=== PATIENT | female | born 1965 | race Caucasian/White ===

== ENCOUNTER 2017-03-30 15:33 | Emergency (ER) | payer MEDICAID ==
--- NOTE | 2017-03-30 16:15 | ER Document Report ---
HPI - HPI Patient complains to provider of: Right ankle, right foot, and right elbow pain Onset: This afternoon Onset/Duration: Sudden Quality of pain: Throbbing Severity: Moderate Pain Level: 4 Context: Patient states she slipped and fell off her porch injuring her right elbow, right ankle/foot. Denies other injuries. Associated Symptoms: Leg swelling - Right ankle/foot Exacerbated by: Movement, Walking Relieved by: Denies Similar symptoms previously: No Recently seen / treated by doctor: No - ROS ROS below otherwise negative: Yes Systems Reviewed and Negative: Yes All other systems reviewed and negative - CONSTITUTIONAL Constitutional: DENIES: Fever - EENT EENT: DENIES: Nasal Drainage-Purulent - NEURO Neurology: DENIES: Dizzinesss / Vertigo - CARDIOVASCULAR Cardiovascular: DENIES: Chest pain - RESPIRATORY Respiratory: DENIES: Trouble Breathing - GASTROINTESTINAL Gastrointestinal: DENIES: Abdominal Pain - URINARY Urinary: DENIES: Dysuria - REPRODUCTIVE Reproductive: DENIES: : - MUSCULOSKELETAL Musculoskeletal: REPORTS: Extremity pain - Right ankle/foot, elbow, Swelling - DERM Skin Color: Ecchymosis Skin Problems: Rash Past Medical History - General Information source: Patient - Social History Smoking Status: Current Every Day Smoker Cigarette use (# per day): Yes Frequency of alcohol use: None Drug Abuse: None Lives with: Family Family History: Other - mental illness Patient has suicidal ideation: No Patient has homicidal ideation: No Pulmonary Medical History: Reports: Hx COPD Neurological Medical History: Reports: Hx Migraine Musculoskeltal Medical History: Reports Hx Fibromyalgia Psychiatric Medical History: Reports: Hx Attention Deficit Hyperactivity Disorder, Hx Bipolar Disorder, Hx Depression Past Surgical History: Reports: Hx Section, Hx Cholecystectomy, Hx Hysterectomy - Immunizations Hx Diphtheria, Pertussis, Tetanus Vaccination: Yes Hx Pneumococcal Vaccination: 10/25/11 Vertical Provider Document - CONSTITUTIONAL Agree With Documented VS: Yes Exam Limitations: No Limitations General Appearance: WD/WN, No Apparent Distress - INFECTION CONTROL TRAVEL OUTSIDE OF THE [place] IN LAST 30 DAYS: No - HEENT HEENT: Atraumatic, Normocephalic - RESPIRATORY Respiratory: Breath Sounds Normal, No Respiratory Distress O2 Sat by Pulse Oximetry: 96 - CARDIOVASCULAR Cardiovascular: Regular Rate, Regular Rhythm - GI/ABDOMEN Gastrointestinal: Abdomen Soft, Abdomen Non-Tender - MUSCULOSKELETAL/EXTREMETIES Musculoskeletal/Extremeties: Tender, Edema - Right foot/ankle, Eccymosis - Right lateral foot and right elbow - NEURO Level of Consciousness: Awake, Alert, Appropriate - DERM Integumentary: Warm, Dry, Rash - Patient has multiple scabbed, red lesions to arms and legs. Several with surrounding erythema and warmth. Course - Re-evaluation Re-evalutation: 03/30/17 17:13 X-rays negative and discussed with patient. - Vital Signs Vital signs: Temp Pulse Resp BP Pulse Ox 98.2 F 89 18 100/78 96 03/30/17 15:40 03/30/17 15:40 03/30/17 15:40 03/30/17 15:40 03/30/17 15:40 Discharge - Discharge Clinical Impression: Rash Fall Qualifiers: Encounter type: initial encounter Qualified Code(s): W19.XXXA - Unspecified fall, initial encounter Foot sprain Qualifiers: Encounter type: initial encounter Laterality: right Qualified Code(s): S93.601A - Unspecified sprain of right foot, initial encounter Contusion of right elbow Qualifiers: Encounter type: initial encounter Qualified Code(s): S50.01XA - Contusion of right elbow, initial encounter Condition: Good Disposition: HOME, SELF-CARE Instructions: Ice Packs ([facility]), Sprain ([facility]) Additional Instructions: No fractures were seen on x-ray today. Ice and elevate right foot and elbow [id number] ibuprofen for pain With your doctor for recheck on Wednesday. Take All antibiotics for the skin rash that you have. return As needed Prescriptions: Cephalexin [Cephalexin 500 MG Capsule] 1 cap PO QID #28 capsule
--- NOTE | 2017-03-30 16:57 | RADIOLOGY REPORT (SQ) ---
EXAM DESCRIPTION: ANKLE RIGHT COMPLETE COMPLETED DATE/TIME: 03/30/2017 4:43 pm REASON FOR STUDY: fall injury COMPARISON: None. NUMBER OF VIEWS: Three views. TECHNIQUE: AP, lateral, and oblique radiographic images acquired of the right ankle. LIMITATIONS: None. FINDINGS: MINERALIZATION: Normal. BONES: No acute fracture or dislocation. No worrisome bone lesions. JOINTS: No effusions. SOFT TISSUES: Mild soft tissue swelling is identified. OTHER: No other significant finding. IMPRESSION: Soft tissue swelling without evidence for fracture TECHNICAL DOCUMENTATION: JOB ID: [id number] [employer]- All Rights Reserved
--- NOTE | 2017-03-30 16:59 | RADIOLOGY REPORT (SQ) ---
EXAM DESCRIPTION: ELBOW RIGHT OVER 2 VIEWS COMPLETED DATE/TIME: 03/30/2017 4:43 pm REASON FOR STUDY: fall injury COMPARISON: None. NUMBER OF VIEWS: Four views. TECHNIQUE: AP, lateral, and both oblique radiographic images acquired of the right elbow. LIMITATIONS: None. FINDINGS: MINERALIZATION: Normal. BONES: No acute fracture or dislocation. No worrisome bone lesions. JOINT: No effusion. SOFT TISSUES: No soft tissue swelling. No foreign body. OTHER: No other significant finding. IMPRESSION: NEGATIVE STUDY OF THE RIGHT ELBOW. NO RADIOGRAPHIC EVIDENCE OF ACUTE INJURY. TECHNICAL DOCUMENTATION: JOB ID: [id number] [employer]- All Rights Reserved
--- NOTE | 2017-03-30 17:06 | RADIOLOGY REPORT (SQ) ---
EXAM DESCRIPTION: FOOT RIGHT COMPLETE COMPLETED DATE/TIME: 03/30/2017 4:43 pm REASON FOR STUDY: fall injury COMPARISON: None. NUMBER OF VIEWS: Three views. TECHNIQUE: AP, lateral and oblique radiographic images acquired of the right foot. LIMITATIONS: None. FINDINGS: MINERALIZATION: Normal. BONES: No acute fracture or dislocation. No worrisome bone lesions. JOINTS: No effusions. SOFT TISSUES: No soft tissue swelling. No foreign body. OTHER: No other significant finding. IMPRESSION: NEGATIVE STUDY OF THE RIGHT FOOT. NO RADIOGRAPHIC EVIDENCE OF ACUTE INJURY. TECHNICAL DOCUMENTATION: JOB ID: [id number] [employer]- All Rights Reserved
[2017-03-30] MEDS ORDERED: IBUPROFEN 600 MG TABLET PO ONE (17:12)
[2017-03-30 17:25] VITALS: BP 113/92
== END 2017-03-30 17:20 | disposition home or self-care (01) ==
LOC: ER 15:33
DX: S93.601A Unspecified sprain of right foot, initial encounter (principal); S50.01XA Contusion of right elbow, initial encounter; R21 Rash and other nonspecific skin eruption; M25.571 Pain in right ankle and joints of right foot; M79.671 Pain in right foot; M25.521 Pain in right elbow; W19.XXXA Unspecified fall, initial encounter; F17.210 Nicotine dependence, cigarettes, uncomplicated
CPT/HCPCS: 99283; 73610; 73080; 73630; J3490

== ENCOUNTER 2017-11-06 16:32 | Emergency (ER) | payer MEDICAID ==
[2017-11-06] MEDS ORDERED: CLINDAMYCIN HCL 150 MG CAPSULE PO ONE (17:46)
--- NOTE | 2017-11-06 17:51 | ER Document Report ---
HPI - HPI Patient complains to provider of: Blisters to skin Onset: Yesterday Onset/Duration: Persistent Quality of pain: Achy Pain Level: 5 Context: Patient complains of blisters to bilateral feet that developed yesterday. Patient states that the blister opened up and came off when she put her sock off. Patient denies taking any medications. Patient denies any new foods or detergents. Patient without any fever. Patient complains of redness to bilateral feet. Patient additionally has a scabbed wound to left elbow. Patient reports her tetanus immunization was 4 years ago. Associated Symptoms: Other - Skin blisters to feet Exacerbated by: Movement Relieved by: Denies Similar symptoms previously: No Recently seen / treated by doctor: No - ROS ROS below otherwise negative: Yes Systems Reviewed and Negative: Yes All other systems reviewed and negative - CONSTITUTIONAL Constitutional: DENIES: Fever, Chills - CARDIOVASCULAR Cardiovascular: DENIES: Chest pain - RESPIRATORY Respiratory: DENIES: Trouble Breathing, Coughing - REPRODUCTIVE Reproductive: DENIES: : - MUSCULOSKELETAL Musculoskeletal: REPORTS: Extremity pain - DERM Skin Color: Erythema Skin Problems: Blister Past Medical History - General Information source: Patient - Social History Smoking Status: Current Every Day Smoker Smoking Education Provided: Yes Frequency of alcohol use: None Drug Abuse: None Occupation: None Lives with: Family Family History: Reviewed & Not Pertinent, Other - mental illness Pulmonary Medical History: Reports: Hx COPD Neurological Medical History: Reports: Hx Migraine Renal/ Medical History: Denies: Hx Peritoneal Dialysis Musculoskeltal Medical History: Reports Hx Fibromyalgia Psychiatric Medical History: Reports: Hx Attention Deficit Hyperactivity Disorder, Hx Bipolar Disorder, Hx Depression Past Surgical History: Reports: Hx Section, Hx Cholecystectomy, Hx Hysterectomy - Immunizations Hx Diphtheria, Pertussis, Tetanus Vaccination: Yes Hx Pneumococcal Vaccination: 10/25/11 Vertical Provider Document - CONSTITUTIONAL Agree With Documented VS: Yes Exam Limitations: No Limitations General Appearance: Other - Drowsy, arouses easily to voice - INFECTION CONTROL TRAVEL OUTSIDE OF THE [place] IN LAST 30 DAYS: No - HEENT HEENT: Atraumatic, Normal ENT Exam, Normocephalic - NECK Neck: Normal Inspection - RESPIRATORY Respiratory: No Respiratory Distress O2 Sat by Pulse Oximetry: 99 - CARDIOVASCULAR Pulses: Normal: Radial, Dorsalis pedis - BACK Back: Normal Inspection - MUSCULOSKELETAL/EXTREMETIES Musculoskeletal/Extremeties: MAEW, FROM, No Edema - NEURO Level of Consciousness: Awake, Appropriate Motor/Sensory: No Motor Deficit - DERM Integumentary: Warm, Dry Adult Front & Back Diagram: 1 - Crusted skin lesion with surrounding erythema 2 - Open blister with surrounding erythema, blister has been deroofed and has trimmed wound edges that appear as though somebody clipped the hanging skin off 3 - 3 open skin lesions with surrounding erythema Course - Re-evaluation Re-evalutation: 11/06/17 17:46 Patient denies picking at or scratching at the skin although has obvious excoriations surrounding wound to left elbow. Open skin wounds to bilateral feet do look like they may have been blisterlike lesions although they appear to have been deroofed and the overlying skin appears to have been trimmed away although patient denies trimming the overlying blister. Patient appears to be overmedicated. Patient does arouse easily to voice and answers questions appropriately when awake. Patient is requesting something for pain or something for her anxiety. Provider explained to patient that she appears to be overmedicated at this time given the patient denies taking any medications at all. Patient advised that she can have Tylenol or Motrin to manage her pain symptoms. Patient states that she has these medications at home. Controlled substance database reviewed After review of controlled substance database, provider discussed findings with patient showing that patient has prescriptions filled recently for Klonopin as well as methadone. Patient states that she is not taking these medications but that they did get filled recently and that she just has not picked them up from her aunt's house. 11/06/17 18:31 Patient and her mother were advised that patient should not take her Klonopin together with her methadone to avoid oversedation. Patient was advised that she needs to follow-up with her primary doctor to discuss the dosages of her medications as she may need one if not both of the dosages of these medications decreased to avoid oversedation. Patient advised that it is dangerous to take these medications as they can cause potential from overdose. Patient and mother verbalized understanding. - Vital Signs Vital signs: Temp Pulse Resp BP Pulse Ox 98.9 F 78 18 113/65 99 11/06/17 16:58 11/06/17 16:58 11/06/17 16:58 11/06/17 16:58 11/06/17 16:58 Discharge - Discharge Clinical Impression: Cellulitis Qualifiers: Site of cellulitis: extremity Site of cellulitis of extremity: lower extremity Laterality: unspecified laterality Qualified Code(s): L03.119 - Cellulitis of unspecified part of limb Condition: Stable Disposition: HOME, SELF-CARE Instructions: Bactroban Ointment ([facility]), Cellulitis ([facility]), Clindamycin ([facility]), Dressing Instructions for Open Wounds ([facility]), Family Physicians / Practices Additional Instructions: Return immediately for any new or worsening symptoms Followup with your primary care provider, call tomorrow to make a followup appointment Keep wounds covered while they continue to heal, do not pick at your skin Prescriptions: Clindamycin HCl [Cleocin Hcl] 300 mg PO QID #28 capsule Mupirocin [Bactroban 2% Ointment 22 gm] 1 applic TP TID #22 gm Forms: Smoking Cessation Education Referrals: [facility] [Provider Group] - Follow up as needed
[2017-11-06 18:47] VITALS: BP 122/81
== END 2017-11-06 18:40 | disposition home or self-care (01) ==
LOC: ER 16:32
DX: L03.119 Cellulitis of unspecified part of limb (principal); S90.822A Blister (nonthermal), left foot, initial encounter; S90.821A Blister (nonthermal), right foot, initial encounter; F17.200 Nicotine dependence, unspecified, uncomplicated; X58.XXXA Exposure to other specified factors, initial encounter
CPT/HCPCS: 99282; J3490

== ENCOUNTER 2017-12-14 01:46 | Emergency (ER) | payer MEDICAID ==
--- NOTE | 2017-12-14 02:34 | ER Document Report ---
ED Syncope and Near Syncope - General Chief Complaint: Syncope Stated Complaint: SYNCOPAL EPISODE Time Seen by Provider: 12/14/17 02:20 Mode of Arrival: Medic Information source: Relative Notes: 52-year-old female presents to ED for severe left-sided headache and "syncope "for the last 3 days. Mom states the looks like she was having a seizure yesterday because she was shaking all over and yelling at mom to help her. TRAVEL OUTSIDE OF THE [place] IN LAST 30 DAYS: No - HPI Patient complains to provider of: Nearly fainting Episode witnessed (by whom): Yes - Mother Single episoded occurred: Mother states that she has been acting different and has been screaming for Symptoms prior to episode: Other - Patient has had increase in headaches she is on multiple medications to include methadone and Klonopin and Neurontin. EMS stated her blood sugar was in the 60s when they arrived to the house. Position/Activity at time of episode: Sitting Quality of pain: Other - Headache Severity: Moderate Context: Low blood sugar Seizure activity observed: Focal Current symptoms: Headache Similar symptoms previously: Yes Recently seen / treated by doctor: Yes - Related Data Allergies/Adverse Reactions: acetaminophen [From Darvocet-N 100] Allergy (Unknown, Verified 03/30/17 16:29) Penicillins Allergy (Unknown, Verified 03/30/17 16:29) propoxyphene napsylate [From Darvocet-N 100] Allergy (Unknown, Verified 16:29) tramadol HCl [From Ultram] Allergy (Unknown, Verified 03/30/17 16:29) Past Medical History - General Information source: Relative - Mother - Social History Smoking Status: Current Every Day Smoker Cigarette use (# per day): Yes Chew tobacco use (# tins/day): No Smoking Education Provided: No Frequency of alcohol use: None Drug Abuse: None Lives with: Family Family History: Reviewed & Not Pertinent, Other - mental illness - Past Medical History Cardiac Medical History: Reports: None Pulmonary Medical History: Reports: Hx COPD EENT Medical History: Reports: None Neurological Medical History: Reports: Hx Migraine Endocrine Medical History: Reports: None Renal/ Medical History: Reports: None Malignancy Medical History: Reports: None GI Medical History: Reports: None Musculoskeltal Medical History: Reports Hx Fibromyalgia Skin Medical History: Reports None Psychiatric Medical History: Reports: Hx Attention Deficit Hyperactivity Disorder, Hx Bipolar Disorder, Hx Depression Traumatic Medical History: Reports: None Infectious Medical History: Reports: None Past Surgical History: Reports: Hx Section - 2, Hx Cholecystectomy - Immunizations Hx Diphtheria, Pertussis, Tetanus Vaccination: Yes Hx Pneumococcal Vaccination: 10/25/11 Review of Systems - Review of Systems Notes: Constitutional: [PRESENT: as per HPI. ABSENT: chills, fever(s),headache(s), weight gain, weight loss] low blood sugar for EMS Eyes: [ABSENT: visual disturbances] Ears: [ABSENT: hearing changes] Cardiovascular: [ABSENT: chest pain, dyspnea on exertion, edema, orthropnea, palpitations] Respiratory: [ABSENT: cough, hemoptysis] Gastrointestinal: [ABSENT: abdominal pain, constipation, diarrhea, hematemesis, hematochezia, nausea, vomiting] Genitourinary: [ABSENT: dysuria, hematuria] Musculoskeletal: [ABSENT: joint swelling] Integumentary: [ABSENT: rash, wounds] Neurological: [ABSENT: abnormal gait, abnormal speech, confusion, dizziness, focal weakness, positive for syncopal episode per family Psychiatric: Mental health history patient on methadone and Neurontin and Klonopin Endocrine: [ABSENT: cold intolerance, heat intolerance, menstrual abnormalities , polydipsia, polyuria] Hematologic/Lymphatic: [ABSENT: easy bleeding, easy bruising, lymphadenopathy] Physical Exam - Vital signs Vitals: Pulse Ox 96 12/14/17 01:57 - Notes Notes: PHYSICAL EXAMINATION: GENERAL: 52-year-old female well-appearing, well-nourished and in no acute distress. HEAD: Atraumatic, normocephalic. EYES: Pupils equal round and reactive to light, extraocular movements intact, conjunctiva are normal. ENT: Nares patent, oropharynx clear without exudates. Moist mucous membranes. NECK: Normal range of motion, supple without lymphadenopathy LUNGS: Breath sounds clear to auscultation bilaterally and equal. No wheezes rales or rhonchi. HEART: Regular rate and rhythm without murmurs ABDOMEN: Soft, nontender, nondistended abdomen. No guarding, no rebound. No masses appreciated. Female : deferred Musculoskeletal: Normal range of motion, no pitting or edema. No cyanosis. NEUROLOGICAL: Patient is very sleepy on multiple psych drugs as well as pain medications to include methadone, Klonopin, and Neurontin. PSYCH: Patient very sleepy at this time SKIN: Warm, Dry, normal turgor, no rashes or lesions noted. Course - Re-evaluation Re-evalutation: 12/14/17 06:08 Patient awake able to walk to the bathroom with a steady gait with the nurse and the PCT. Accu-Chek is 72. She is answering questions appropriately. Results of labs and x-ray and CT discussed with patient and mother and written reports given to them to follow-up with the primary doctor today. Patient was instructed to follow-up with her doctor today by telephone to schedule a follow- up appointment. Will discharge patient home. - Vital Signs Vital signs: Temp Pulse Resp BP Pulse Ox 14 119/78 96 12/14/17 05:01 12/14/17 05:00 12/14/17 05:01 - Laboratory Result Diagrams: 12/14/17 02:40 12/14/17 02:40 Laboratory results interpreted by me: 12/14/17 12/14/17 12/14/17 02:40 02:40 04:48 RBC 3.57 L Hgb 10.7 L Hct 31.6 L RDW 14.8 H Sodium 145.9 H Potassium 3.4 L Glucose 72 L Ur Leukocyte Esterase TRACE H - Diagnostic Test Radiology reviewed: Image reviewed, Reports reviewed Discharge - Discharge Clinical Impression: Syncope Qualifiers: Syncope type: unspecified Qualified Code(s): R55 - Syncope and collapse Condition: Stable Disposition: HOME, SELF-CARE Additional Instructions: NEAR SYNCOPAL EPISODE: Syncope or near syncope (fainting or near-fainting) can occur from many different health problems. Or it can be a simple fainting spell requiring no treatment. It is safe for you to go home, but further evaluation will likely be necessary. Your work-up may include tests for internal bleeding, heart disease, medication problems, or near-strokes. Tests are not always required, however, depending on the nature of your problem. The warning signs of an impending faint include: dizziness, lightheadedness , nausea, hot flashes, tingling, and weakness. If this happens, lay down and put your feet up, then wait until all of these symptoms have passed before standing up again. If these episodes become recurrent, or if you develop chest pain, heart palpitations, mental confusion, blurred vision, or headache, then you should call the physician, or go to the emergency room. ALTERED MENTAL STATUS: An altered mental status is a change in the normal functioning of the brain. This alteration of function can range from minor decreased brain function with some forgetfulness and confusion to complete loss of consciousness and coma. There are many possible causes of an altered mental status and include brain injuries such as trauma or strokes, problems with oxygen supply to the brain, fever and infections of the brain and/or elsewhere in the body, metabolic abnormalities such as low or high blood sugar, overdoses or excessive medication ingestion, and mental and psychiatric illnesses. Sometimes the altered mental status resolves and a definite cause is not determined. If a cause for your altered mental status was found, it has likely been corrected. Your evaluation has not shown any condition that requires that you be admitted to the hospital. It is believed that you are safe to lelave and return to your home. If you have a return of your symptoms, you should return for re-evaluation. NORMAL EXAM AND WORKUP: At this time, your examination and workup show no significant abnormality. No significant abnormal physical findings were noted. All laboratory, EKG, and imaging (x-ray, CT scans, ultrasound) studies that were ordered show no significant abnormality. Although your examination and all studies that were ordered showed no significant abnormal finding, there are no examinations and no studies that are 100% accurate. There is always the possibility that some abnormality could exist and not be detected with physical examination or within the limits and capabilities of laboratory and other studies. You should return or follow up as you were instructed on your visit today for further evaluation if your symptoms do not resolve. FOLLOW-UP CARE: If you have been referred to a physician for follow-up care, call the physician s office for an appointment as you were instructed or within the next two days. If you experience worsening or a significant change in your symptoms, notify the physician immediately or return to the Emergency Department at any time for re-evaluation. Referrals: BOUCHRA GUERRERO MD [Primary Care Provider] - 12/14/17
[2017-12-14 02:51] LABS: ABSOLUTE BASOPHILS # (AUTO) 0.1 10^3/uL (0.0-0.2); ABSOLUTE EOSINOPHILS # (AUTO) 0.2 10^3/uL (0.0-0.6); ABSOLUTE MONOCYTES (AUTO) 0.4 10^3/uL (0.1-1.4); ABSOLUTE NEUT (AUTO) 3.2 10^3/uL (1.7-8.2); BASOPHILS % (AUTO) 0.9 % (0-2); HEMATOCRIT 31.6 % (36.0-47.0); HEMOGLOBIN 10.7 g/dL (12.0-15.5); LYMPHOCYTES % (AUTO) 34.5 % (13-45); MEAN CORPUSCULAR HEMOGLOBIN 29.9 pg (27.0-33.4); MEAN CORPUSCULAR HGB CONC 33.8 g/dL (32.0-36.0); MEAN CORPUSCULAR VOLUME 88 fl (80-97); MONOCYTES % (AUTO) 7.3 % (3-13); PLATELET COUNT 251 10^3/uL (150-450); RED BLOOD COUNT 3.57 10^6/uL (3.72-5.28); RED CELL DISTRIBUTION WIDTH 14.8 % (11.5-14.0); SEGMENTED NEUTROPHILS % (AUTO) 54.3 % (42-78); TOTAL CELLS COUNTED % (AUTO) 100 %; WHITE BLOOD COUNT 5.9 10^3/uL (4.0-10.5)
--- NOTE | 2017-12-14 03:03 | RADIOLOGY REPORT (SQ) ---
EXAM DESCRIPTION: CT HEAD WITHOUT CLINICAL HISTORY: headache COMPARISON: 09/24/2016 TECHNIQUE: Axial CT of the head obtained from the skull apex to the skull base without contrast. FINDINGS: No acute intracranial hemorrhage identified. No mass, mass effect, shift of the midline, abnormal extra-axial fluid collection or CT evidence of acute ischemic change identified. The ventricular system and sulcal spaces are mildly enlarged compatible with mild cerebral atrophy. Scattered areas of hypodensity throughout the supratentorial white matter are nonspecific and may be related to chronic small vessel ischemic change. The visualized paranasal sinuses and the mastoids are clear. No skull fracture identified. Visualized orbits and globes are unremarkable. Atherosclerotic calcification of the intracranial internal carotid arteries. DLP: 2479.25 mGy-cm IMPRESSION: 1. No acute intracranial abnormality by CT criteria. This exam was performed according to our departmental dose-optimization program, which includes automated exposure control, adjustment of the mA and/or kV according to patient size and/or use of iterative reconstruction technique.
[2017-12-14 03:06] LABS: ALANINE AMINOTRANSFERASE 21 U/L (9-52); ALBUMIN 3.8 g/dL (3.5-5.0); ALKALINE PHOSPHATASE 62 U/L (38-126); ANION GAP 10 (5-19); ASPARTATE AMINO TRANSFERASE 23 U/L (14-36); BILIRUBIN,DIRECT 0.1 mg/dL (0.0-0.4); BILIRUBIN,TOTAL 0.3 mg/dL (0.2-1.3); BLOOD UREA NITROGEN 9 mg/dL (7-20); CALCIUM 9.5 mg/dL (8.4-10.2); CARBON DIOXIDE 30 mmol/L (22-30); CHLORIDE 106 mmol/L (98-107); GLUCOSE 72 mg/dL (75-110); POTASSIUM 3.4 mmol/L (3.6-5.0); SODIUM 145.9 mmol/L (137-145); TOTAL PROTEIN 6.4 g/dL (6.3-8.2)
--- NOTE | 2017-12-14 03:24 | RADIOLOGY REPORT (SQ) ---
EXAM DESCRIPTION: CHEST PA/LAT CLINICAL HISTORY: cough congestion COMPARISON: None. FINDINGS: Frontal and lateral views of the chest. Atherosclerotic calcification of the thoracic aorta. Heart is upper limits of normal in size. No consolidation, pneumothorax, or pleural effusion. Low lung volumes. No acute osseous abnormalities. Leads overlie the chest. Postoperative change in the upper abdomen. IMPRESSION: 1. No acute pulmonary process identified. Low lung volumes.
[2017-12-14 05:03] LABS: APPEARANCE,URINE CLEAR; BILIRUBIN,URINE NEGATIVE (NEGATIVE); COLOR,URINE STRAW; GLUCOSE, URINE NEGATIVE (NEGATIVE); KETONES,URINE NEGATIVE (NEGATIVE); LEUKOCYTE ESTERASE,URINE TRACE (NEGATIVE); NITRITE,URINE NEGATIVE (NEGATIVE); PROTEIN,URINE NEGATIVE (NEGATIVE); URINE SPECIFIC GRAVITY 1.004; UROBILINOGEN,URINE NEGATIVE mg/dL (<2.0)
[2017-12-14 06:14] VITALS: BP 119/90
--- NOTE | 2017-12-14 07:47 | EKG REPORT ---
SEVERITY:- ABNORMAL ECG - SINUS RHYTHM RIGHT BUNDLE BRANCH BLOCK NONSPECIFIC ST-T CHANGES- INFERIOR LEADS : Confirmed by: Hakan Wahl MD 14-Dec-2017 07:46:49
== END 2017-12-14 06:21 | disposition home or self-care (01) ==
LOC: ER 01:46
DX: R55 Syncope and collapse (principal); R51 Headache; Z79.899 Other long term (current) drug therapy; F17.210 Nicotine dependence, cigarettes, uncomplicated
CPT/HCPCS: 36415; 70450; 71046; 80053; 81001; 82962; 84703; 85025; 93005; 93010; 99285

== ENCOUNTER → 2018-04-06 | Outpatient (CLI) | payer MEDICAID ==
--- NOTE | 2018-04-06 18:55 | RADIOLOGY REPORT (SQ) ---
EXAM DESCRIPTION: CERV SP 3 VIEW OR LESS COMPLETED DATE/TIME: 04/06/2018 6:34 pm REASON FOR STUDY: M54.2 CERVICALGIA, M54.42 CHRONIC BILATERAL LOW BACK PAIN M54.41 M54.2 CERVICALGI A M54.42 LUMBAGO WITH SCIATICA, LEFT SIDE M54.41 LUMBAGO WITH SCIATICA, RIGHT SIDE COMPARISON: None. NUMBER OF VIEWS: Three views. TECHNIQUE: AP, lateral and odontoid radiographic images acquired of the cervical spine. LIMITATIONS: None. FINDINGS: MINERALIZATION: Normal. ALIGNMENT: Anatomic. VERTEBRAE: Vertebral bodies of normal height. DISCS: Mild disc space narrowing at C6-7 with anterior and posterior osteophytes. Smaller anterior o steophytes at C4 and C5. HARDWARE: None in the spine. SOFT TISSUES: No masses or calcifications. Lung apices clear. OTHER: No other significant finding. IMPRESSION: Mild degenerative disc changes with spondylosis. TECHNICAL DOCUMENTATION: JOB ID: [id number] [employer]- All Rights Reserved Reading location - IP/workstation name: [email or web address]
--- NOTE | 2018-04-06 18:57 | RADIOLOGY REPORT (SQ) ---
EXAM DESCRIPTION: T SPINE AP/LAT COMPLETED DATE/TIME: 04/06/2018 6:34 pm REASON FOR STUDY: M54.2 CERVICALGIA, M54.42 CHRONIC BILATERAL LOW BACK PAIN M54.41 M54.2 CERVICALGI A M54.42 LUMBAGO WITH SCIATICA, LEFT SIDE M54.41 LUMBAGO WITH SCIATICA, RIGHT SIDE COMPARISON: 05/31/2015 NUMBER OF VIEWS: Two views. TECHNIQUE: AP and lateral radiographic images acquired of the thoracic spine. LIMITATIONS: None. FINDINGS: MINERALIZATION: Normal. ALIGNMENT: Normal. No scoliosis. VERTEBRAE: No acute fracture. Chronic anterior wedging of L1. DISCS: No significant loss of height or significant narrowing. No large osteophytes. HARDWARE: None in the spine. MEDIASTINUM AND SOFT TISSUES: Normal heart size and aortic contour. No soft tissue abnormality. VISUALIZED LUNG MERLOS: Clear. OTHER: No other significant finding. IMPRESSION: NO SIGNIFICANT RADIOGRAPHIC FINDING IN THE THORACIC SPINE. TECHNICAL DOCUMENTATION: JOB ID: [id number] [employer]- All Rights Reserved Reading location - IP/workstation name: [email or web address]
--- NOTE | 2018-04-06 19:00 | RADIOLOGY REPORT (SQ) ---
EXAM DESCRIPTION: L SPINE 2 VIEWS COMPLETED DATE/TIME: 04/06/2018 6:34 pm REASON FOR STUDY: M54.2 CERVICALGIA, M54.42 CHRONIC BILATERAL LOW BACK PAIN M54.41 M54.2 CERVICALGI A M54.42 LUMBAGO WITH SCIATICA, LEFT SIDE M54.41 LUMBAGO WITH SCIATICA, RIGHT SIDE COMPARISON: 05/31/2015 NUMBER OF VIEWS: Two views. TECHNIQUE: AP and lateral radiographic images acquired of the lumbar spine. LIMITATIONS: None. FINDINGS: MINERALIZATION: Normal. SEGMENTATION: Normal. No transitional anatomy. ALIGNMENT: Normal. VERTEBRAE: Chronic anterior wedging of L1. No acute compression changes. DISCS: Mild narrowing at L4-5 and L5-S1. POSTERIOR ELEMENTS: Hypertrophic facet changes from L3-S1. HARDWARE: None in the spine. PARASPINAL SOFT TISSUES: Normal. PELVIS: Intact as visualized. No fractures or worrisome bone lesions. SI joints intact. OTHER: No other significant finding. IMPRESSION: Degenerative disc disease with facet arthropathy. TECHNICAL DOCUMENTATION: JOB ID: [id number] [employer]- All Rights Reserved Reading location - IP/workstation name: [email or web address]
== END ==
LOC: RAD 17:38
PROVIDERS: ATTEND Family Medicine
DX: M54.41 Lumbago with sciatica, right side (principal); M54.2 Cervicalgia
CPT/HCPCS: 72040; 72070; 72100

== ENCOUNTER → 2018-06-03 | Outpatient (CLI) | payer MEDICAID ==
--- NOTE | 2018-06-04 00:07 | EKG REPORT ---
SEVERITY:- ABNORMAL ECG - SINUS RHYTHM RIGHT BUNDLE BRANCH BLOCK : Confirmed by: Karis Becker MD 04-Jun-2018 00:06:46
== END ==
LOC: OD 15:21
PROVIDERS: ATTEND Physician Assistant
DX: G89.4 Chronic pain syndrome (principal)
CPT/HCPCS: 36415; 80358; 93005; 93010

== ENCOUNTER 2018-07-31 18:18 | Emergency (ER) | payer MEDICAID ==
--- NOTE | 2018-07-31 19:19 | ER Document Report ---
ED Medical Screen (RME) - General Chief Complaint: Flank Pain Stated Complaint: SIDE PAIN Time Seen by Provider: 07/31/18 19:02 Mode of Arrival: Ambulatory Information source: Patient Notes: 53-year-old female with fibromyalgia, bipolar depression presents with right upper quadrant abdominal pain that has been present for 4 years that has worsened over the last 2 days. I have greeted and performed a rapid initial assessment of this patient. A comprehensive ED assessment and evaluation of the patient, analysis of test results and completion of medical decision making process we will be contacted by additional ED providers. PHYSICAL EXAMINATION: Vital signs reviewed GENERAL: Appears intoxicated LUNGS: No respiratory distress Musculoskeletal: Normal range of motion NEUROLOGICAL: Slurred speech PSYCH: Appears intoxicated SKIN: Warm, Dry, normal turgor, no rashes or lesions noted. TRAVEL OUTSIDE OF THE [place] IN LAST 30 DAYS: No - HPI Onset: Other Onset/Duration: Intermittent Quality of pain: Stabbing Associated Symptoms: Nausea Exacerbated by: Denies Relieved by: Denies Similar symptoms previously: Yes Recently seen / treated by doctor: Yes - Related Data Smoking: Cigarettes Drug Abuse: Other Allergies/Adverse Reactions: acetaminophen [From Darvocet-N 100] Allergy (Unknown, Verified 03/30/17 16:29) Penicillins Allergy (Unknown, Verified 03/30/17 16:29) propoxyphene napsylate [From Darvocet-N 100] Allergy (Unknown, Verified 16:29) tramadol HCl [From Ultram] Allergy (Unknown, Verified 03/30/17 16:29) Past Medical History Pulmonary Medical History: Reports: Hx COPD Neurological Medical History: Reports: Hx Migraine Renal/ Medical History: Denies: Hx Peritoneal Dialysis Musculoskeltal Medical History: Reports Hx Fibromyalgia Psychiatric Medical History: Reports: Hx Attention Deficit Hyperactivity Disorder, Hx Bipolar Disorder, Hx Depression Past Surgical History: Reports: Hx Section - 2, Hx Cholecystectomy, Hx Hysterectomy - Immunizations Hx Diphtheria, Pertussis, Tetanus Vaccination: Yes Physical Exam - Vital signs Vitals: Temp Pulse Resp BP Pulse Ox 98.7 F 86 16 108/70 94 07/31/18 18:22 07/31/18 18:22 07/31/18 18:22 07/31/18 18:22 07/31/18 18:22 Course - Vital Signs Vital signs: Temp Pulse Resp BP Pulse Ox 98.7 F 86 16 108/70 94 07/31/18 18:22 07/31/18 18:22 07/31/18 18:22 07/31/18 18:22 07/31/18 18:22 Doctor's Discharge - Discharge Referrals: JACOB DORAN PA [Primary Care Provider] - Follow up as needed
[2018-07-31 19:59] LABS: APPEARANCE,URINE SLIGHTLY-CLOUDY; BILIRUBIN,URINE NEGATIVE (NEGATIVE); COLOR,URINE YELLOW; GLUCOSE, URINE NEGATIVE (NEGATIVE); KETONES,URINE NEGATIVE (NEGATIVE); LEUKOCYTE ESTERASE,URINE LARGE (NEGATIVE); NITRITE,URINE NEGATIVE (NEGATIVE); PROTEIN,URINE NEGATIVE (NEGATIVE); URINE SPECIFIC GRAVITY 1.024
[2018-07-31 20:01] LABS: URINE AMPHETAMINES SCREEN NEGATIVE; URINE BARBITURATES SCREEN NEGATIVE; URINE BENZODIAZEPINES SCREEN UNCONFIRMED POSITIVE; URINE COCAINE SCREEN NEGATIVE; URINE MARIJUANA (THC) SCREEN NEGATIVE; URINE METHADONE SCREEN UNCONFIRMED POSITIVE; URINE PHENCYCLIDINE SCREEN NEGATIVE
--- NOTE | 2018-07-31 20:28 | ER Document Report ---
ED GI/ - General Chief Complaint: Flank Pain Stated Complaint: SIDE PAIN Time Seen by Provider: 07/31/18 19:02 Mode of Arrival: Ambulatory Notes: Patient is a 53-year-old female that comes to the emergency department for chief complaint of right flank pain and abdominal pain that started about 3 days ago. She states she actually has abdominal pain that is chronic for the past 4 years, she states it feels sharper than usual. She denies nausea or vomiting, fever or chills, chest pain. She does report some discomfort with urination. Past medical history of cholecystectomy, fibromyalgia, bipolar/ depression, degenerative disc disease on chronic pain management with methadone. TRAVEL OUTSIDE OF THE [place] IN LAST 30 DAYS: No - Related Data Allergies/Adverse Reactions: acetaminophen [From Darvocet-N 100] Allergy (Unknown, Verified 03/30/17 16:29) Penicillins Allergy (Unknown, Verified 03/30/17 16:29) propoxyphene napsylate [From Darvocet-N 100] Allergy (Unknown, Verified 16:29) tramadol HCl [From Ultram] Allergy (Unknown, Verified 03/30/17 16:29) Past Medical History - General Information source: Patient - Social History Smoking Status: Current Every Day Smoker Frequency of alcohol use: None Drug Abuse: Other Lives with: Alone Family History: Reviewed & Not Pertinent, Other - mental illness Patient has suicidal ideation: No Patient has homicidal ideation: No Pulmonary Medical History: Reports: Hx COPD Neurological Medical History: Reports: Hx Migraine Renal/ Medical History: Denies: Hx Peritoneal Dialysis Musculoskeletal Medical History: Reports Hx Fibromyalgia Psychiatric Medical History: Reports: Hx Attention Deficit Hyperactivity Disorder, Hx Bipolar Disorder, Hx Depression Past Surgical History: Reports: Hx Section - 2, Hx Cholecystectomy, Hx Hysterectomy - Immunizations Hx Diphtheria, Pertussis, Tetanus Vaccination: Yes Hx Pneumococcal Vaccination: 10/25/11 Review of Systems - Review of Systems Constitutional: No symptoms reported EENT: No symptoms reported Cardiovascular: No symptoms reported Respiratory: No symptoms reported Gastrointestinal: See HPI Genitourinary: See HPI Female Genitourinary: No symptoms reported Musculoskeletal: No symptoms reported Skin: No symptoms reported Hematologic/Lymphatic: No symptoms reported Neurological/Psychological: No symptoms reported Physical Exam - Vital signs Vitals: Temp Pulse Resp BP Pulse Ox 98.7 F 86 16 108/70 94 07/31/18 18:22 07/31/18 18:22 07/31/18 18:22 07/31/18 18:22 07/31/18 18:22 - Notes Notes: GENERAL: Sleeping but easily aroused, no signs of distress HEAD: Normocephalic, atraumatic. EYES: Pupils equal, round, and reactive to light. Extraocular movements intact. ENT: Oral mucosa moist, tongue midline. NECK: Full range of motion. Supple. Trachea midline. LUNGS: Clear to auscultation bilaterally, no wheezes, rales, or rhonchi. No respiratory distress. HEART: Regular rate and rhythm. No murmur ABDOMEN: Soft, non-tender. Non-distended. Bowel sounds present in all 4 quadrants. GENITOURINARY: Deferred EXTREMITIES: Moves all 4 extremities spontaneously. No edema, normal radial and dorsalis pedis pulses bilaterally. No cyanosis. BACK: no cervical, thoracic, lumbar midline tenderness. No saddle anesthesia, normal distal neurovascular exam. NEUROLOGICAL: Alert and oriented x3. Normal speech. [cranial nerves II through XII grossly intact]. PSYCH: Normal affect, normal mood. SKIN: Warm, dry, normal turgor. No rashes or lesions noted. Course - Re-evaluation Re-evalutation: Patient is in no distress whatsoever. She is sleeping and easily aroused. No noted CVA tenderness, abdomen is soft and unremarkable, no tachycardia, fever, hypotension. CBC does show normocytic anemia, I did discuss this with patient, she denies blood in stool, she will have this monitored by her primary care. Chemistry generally unremarkable, urinalysis does indicate infection, urine drug screen performed from triage as expected based on patient's reported medications at home. Patient was given Rocephin here, she will be started on antibiotics, urine culture was placed. I do have low suspicion of infected ureterolithiasis based on patient's presentation, lack of blood in urine, and reported lack of kidney stone history. Discussed primary care follow-up and return precautions, patient states understanding and agreement with plan. - Vital Signs Vital signs: Temp Pulse Resp BP Pulse Ox 98.4 F 75 18 112/68 96 07/31/18 22:22 07/31/18 22:22 07/31/18 22:22 07/31/18 22:22 07/31/18 22:22 - Laboratory Result Diagrams: 07/31/18 21:00 07/31/18 21:00 Laboratory results interpreted by me: 07/31/18 07/31/18 07/31/18 19:23 21:00 21:00 RBC 3.31 L Hgb 9.8 L Hct 29.2 L RDW 15.0 H Potassium 3.5 L Carbon Dioxide 31 H Direct Bilirubin 0.5 H Albumin 3.4 L Urine Urobilinogen 4.0 H Ur Leukocyte Esterase LARGE H Discharge - Discharge Clinical Impression: Flank pain, Chronic abdominal pain Condition: Stable Disposition: HOME, SELF-CARE Additional Instructions: Your evaluation does indicate a urinary tract infection. This is likely the cause of your new or worse pain, possibly kidney infection. You have been treated with initial dose of antibiotics here in the emergency department, take antibiotics as prescribed at home to complete treatment. Follow-up with your primary care within the next 2-3 days. Return if you worsen including vomiting , fever of 100.4 or greater, or any other concerning or worsening symptoms. Prescriptions: Cephalexin Monohydrate [Keflex 500 mg Capsule] 500 mg PO BID #14 capsule Referrals: JACOB DORAN PA [Primary Care Provider] - Follow up as needed
[2018-07-31 21:15] LABS: ABSOLUTE EOSINOPHILS # (AUTO) 0.3 10^3/uL (0.0-0.6); ABSOLUTE LYMPHOCYTES (AUTO) 1.5 10^3/uL (0.5-4.7); ABSOLUTE MONOCYTES (AUTO) 0.4 10^3/uL (0.1-1.4); ABSOLUTE NEUT (AUTO) 3.1 10^3/uL (1.7-8.2); BASOPHILS % (AUTO) 0.2 % (0-2); EOSINOPHILS % (AUTO) 4.9 % (0-6); HEMATOCRIT 29.2 % (36.0-47.0); HEMOGLOBIN 9.8 g/dL (12.0-15.5); LYMPHOCYTES % (AUTO) 28.5 % (13-45); MEAN CORPUSCULAR HEMOGLOBIN 29.7 pg (27.0-33.4); MEAN CORPUSCULAR HGB CONC 33.7 g/dL (32.0-36.0); MEAN CORPUSCULAR VOLUME 88 fl (80-97); MONOCYTES % (AUTO) 7.8 % (3-13); PLATELET COUNT 249 10^3/uL (150-450); RED BLOOD COUNT 3.31 10^6/uL (3.72-5.28); SEGMENTED NEUTROPHILS % (AUTO) 58.6 % (42-78); TOTAL CELLS COUNTED % (AUTO) 100 %; WHITE BLOOD COUNT 5.2 10^3/uL (4.0-10.5)
[2018-07-31 21:36] LABS: ALANINE AMINOTRANSFERASE 16 U/L (9-52); ALBUMIN 3.4 g/dL (3.5-5.0); ALKALINE PHOSPHATASE 63 U/L (38-126); ANION GAP 5 (5-19); ASPARTATE AMINO TRANSFERASE 22 U/L (14-36); BILIRUBIN,DIRECT 0.5 mg/dL (0.0-0.4); BILIRUBIN,TOTAL 0.5 mg/dL (0.2-1.3); BLOOD UREA NITROGEN 8 mg/dL (7-20); CALCIUM 8.7 mg/dL (8.4-10.2); CARBON DIOXIDE 31 mmol/L (22-30); CHLORIDE 105 mmol/L (98-107); GLUCOSE 89 mg/dL (75-110); LIPASE 34.5 U/L (23-300); POTASSIUM 3.5 mmol/L (3.6-5.0); SODIUM 140.7 mmol/L (137-145); TOTAL PROTEIN 6.5 g/dL (6.3-8.2)
[2018-07-31] MEDS ORDERED: CEFTRIAXONE INJ 1000 MG VIAL IM ONE (21:49)
[2018-07-31] MEDS ORDERED: LIDOCAINE 1% INJ-PF (10 MG/ML) 30 ML SDV INJ ONE (21:49)
[2018-07-31 22:27] VITALS: BP 112/68
== END 2018-07-31 22:26 | disposition home or self-care (01) ==
LOC: ER 18:18
DX: G89.29 Other chronic pain (principal); R10.9 Unspecified abdominal pain; F17.200 Nicotine dependence, unspecified, uncomplicated; J44.9 Chronic obstructive pulmonary disease, unspecified; Z88.6 Allergy status to analgesic agent; Z88.0 Allergy status to penicillin; Z90.49 Acquired absence of other specified parts of digestive tract; Z90.710 Acquired absence of both cervix and uterus
CPT/HCPCS: 99284; 96372; 36415; 83690; 85025; 80053; 81001; 80307; J3490; J0696

== ENCOUNTER 2018-08-12 23:14 | Emergency (ER) | payer MEDICAID ==
[2018-08-12] MEDS ORDERED: IPRATROPIUM/ALBUTEROL 0.5-2.5 MG/3 ML AMPUL NEB ONE (23:59)
[2018-08-13 00:23] LABS: ABSOLUTE BASOPHILS # (AUTO) 0.1 10^3/uL (0.0-0.2); ABSOLUTE EOSINOPHILS # (AUTO) 0.5 10^3/uL (0.0-0.6); ABSOLUTE LYMPHOCYTES (AUTO) 2.6 10^3/uL (0.5-4.7); ABSOLUTE MONOCYTES (AUTO) 0.8 10^3/uL (0.1-1.4); ABSOLUTE NEUT (AUTO) 8.2 10^3/uL (1.7-8.2); BASOPHILS % (AUTO) 0.7 % (0-2); EOSINOPHILS % (AUTO) 3.9 % (0-6); HEMATOCRIT 31.3 % (36.0-47.0); HEMOGLOBIN 10.7 g/dL (12.0-15.5); MEAN CORPUSCULAR HEMOGLOBIN 29.5 pg (27.0-33.4); MEAN CORPUSCULAR HGB CONC 34.4 g/dL (32.0-36.0); MEAN CORPUSCULAR VOLUME 86 fl (80-97); MONOCYTES % (AUTO) 6.9 % (3-13); PLATELET COUNT 402 10^3/uL (150-450); RED BLOOD COUNT 3.64 10^6/uL (3.72-5.28); RED CELL DISTRIBUTION WIDTH 15.3 % (11.5-14.0); SEGMENTED NEUTROPHILS % (AUTO) 67.5 % (42-78); TOTAL CELLS COUNTED % (AUTO) 100 %; WHITE BLOOD COUNT 12.2 10^3/uL (4.0-10.5)
--- NOTE | 2018-08-13 00:38 | RADIOLOGY REPORT (SQ) ---
EXAM DESCRIPTION: X-ray two view chest. CLINICAL HISTORY: 53 years Female, SOB, wheezing, cough over a week COMPARISON: Prior two-view chest performed on 12/14/2017. TECHNIQUE: PA and Lateral views of the chest performed on 08/13/2018 at 12:50 AM FINDINGS: The lungs are well expanded and are clear. The costophrenic sulci are clear. There is no evidence of a pneumothorax. There may be a small hiatal hernia. The cardiac silhouette is normal in size. The mediastinal contours are normal. No acute osseous abnormalities are identified. No focal soft tissue abnormalities are identified. IMPRESSION: No evidence of acute intrathoracic disease. There appears to be a small hiatal hernia.
[2018-08-13 00:41] LABS: ALANINE AMINOTRANSFERASE 6 U/L (9-52); ALBUMIN 4.2 g/dL (3.5-5.0); ALKALINE PHOSPHATASE 73 U/L (38-126); ANION GAP 11 (5-19); ASPARTATE AMINO TRANSFERASE 18 U/L (14-36); BILIRUBIN,DIRECT 0.2 mg/dL (0.0-0.4); BILIRUBIN,TOTAL 0.4 mg/dL (0.2-1.3); BLOOD UREA NITROGEN 11 mg/dL (7-20); CALCIUM 9.7 mg/dL (8.4-10.2); CARBON DIOXIDE 25 mmol/L (22-30); CHLORIDE 107 mmol/L (98-107); GLUCOSE 86 mg/dL (75-110); POTASSIUM 3.2 mmol/L (3.6-5.0); SODIUM 142.9 mmol/L (137-145); TOTAL PROTEIN 7.4 g/dL (6.3-8.2)
[2018-08-13 00:44] LABS: APPEARANCE,URINE CLOUDY; BILIRUBIN,URINE NEGATIVE (NEGATIVE); CALCIUM OXALATE CRYSTALS,URINE TOO NUMEROUS TO CNT /HPF; COLOR,URINE YELLOW; GLUCOSE, URINE NEGATIVE (NEGATIVE); KETONES,URINE TRACE mg/dL (NEGATIVE); LEUKOCYTE ESTERASE,URINE MODERATE (NEGATIVE); NITRITE,URINE NEGATIVE (NEGATIVE); PROTEIN,URINE NEGATIVE (NEGATIVE); URINE SPECIFIC GRAVITY 1.027
[2018-08-13 00:59] LABS: BACTERIA (WET MOUNT) 3+ BACTERIA SEEN; EPITHELIALS (WET MOUNT) 3+ EPITHELIALS SEEN; RBCS (WET MOUNT) 1+ RBCS SEEN; T.VAGINALIS (WET MOUNT) TRICHOMONAS SEEN; WBCS (WET MOUNT) 3+ WBCS SEEN; YEAST (WET MOUNT) YEAST SEEN
[2018-08-13] MEDS ORDERED: AZITHROMYCIN 1 GM SUSP PACKET PO ONE (01:17)
[2018-08-13] MEDS ORDERED: LIDOCAINE 1% INJ-PF (10 MG/ML) 30 ML SDV INJ ONE (01:18)
[2018-08-13] MEDS ORDERED: FLUCONAZOLE 100 MG TABLET PO ONE (01:18)
[2018-08-13] MEDS ORDERED: CEFTRIAXONE INJ 250 MG VIAL IM ONE (01:18)
[2018-08-13] MEDS ORDERED: METRONIDAZOLE 500 MG TABLET PO ONE (01:18)
--- NOTE | 2018-08-13 01:25 | ER Document Report ---
ED General - General Chief Complaint: Flu Symptoms Stated Complaint: FLU LIKE SYMPTOMS Time Seen by Provider: 08/12/18 23:36 Notes: Patient is a 53-year-old female presenting to the emergency department complaining of dysuria and vaginal discharge. Patient also states she has body aches for the last 4 days. Patient states along with the dysuria she does have vaginal discharge, states it is itchy in nature and green/yellow. Patient states at home she has had a T-max 100.1 Fahrenheit orally. Patient states about 9 years ago she was diagnosed with anemia had multiple blood transfusions. Patient states at that time she also had body aches and would like her "blood levels checked". Patient states she follows up at the [facility] and also sees pain management for her degenerative disc disease. Patient denies abdominal pain, chest pain, URI symptoms, vomiting, diarrhea. Patient denies use of albuterol or COPD diagnosis. Past medical history: Degenerative disc disease, anemia Medications: Methadone, Percocet Allergies: Penicillin, Zofran, Ultram Surgical history: section, cholecystectomy Patient admits to everyday cigarette use, denies illicit drug use, denies EtOH use. TRAVEL OUTSIDE OF THE [place] IN LAST 30 DAYS: No - Related Data Allergies/Adverse Reactions: acetaminophen [From Darvocet-N 100] Allergy (Unknown, Verified 03/30/17 16:29) Penicillins Allergy (Unknown, Verified 03/30/17 16:29) propoxyphene napsylate [From Darvocet-N 100] Allergy (Unknown, Verified 16:29) tramadol HCl [From Ultram] Allergy (Unknown, Verified 03/30/17 16:29) ondansetron [From Zofran] Allergy (Verified 08/13/18 03:21) Lips swelled Home Medications: methadone 5mg, percocet Past Medical History - General Information source: Patient - Social History Smoking Status: Current Every Day Smoker Chew tobacco use (# tins/day): No Frequency of alcohol use: None Drug Abuse: None Lives with: Family Family History: Reviewed & Not Pertinent, Other - mental illness Patient has suicidal ideation: No Patient has homicidal ideation: No Pulmonary Medical History: Reports: Hx COPD Neurological Medical History: Reports: Hx Migraine Renal/ Medical History: Denies: Hx Peritoneal Dialysis GI Medical History: Musculoskeletal Medical History: Reports Hx Fibromyalgia Psychiatric Medical History: Reports: Hx Attention Deficit Hyperactivity Disorder, Hx Bipolar Disorder, Hx Depression Infectious Medical History: Past Surgical History: Reports: Hx Section - x2, Hx Cholecystectomy - 1988, Hx Hysterectomy - Immunizations Hx Diphtheria, Pertussis, Tetanus Vaccination: Yes Hx Pneumococcal Vaccination: 10/25/11 Review of Systems - Review of Systems Constitutional: See HPI EENT: See HPI Cardiovascular: See HPI Respiratory: See HPI Gastrointestinal: See HPI Genitourinary: See HPI Female Genitourinary: See HPI Musculoskeletal: See HPI Skin: No symptoms reported Hematologic/Lymphatic: See HPI Neurological/Psychological: No symptoms reported Physical Exam - Vital signs Vitals: Temp Pulse Resp BP Pulse Ox 99.3 F 90 20 160/85 H 99 08/12/18 23:27 08/12/18 23:27 08/12/18 23:27 08/12/18 23:27 08/12/18 23:27 - Notes Notes: GENERAL: Alert, interacts well. No acute distress. HEAD: Normocephalic, atraumatic. EYES: Pupils equal, round, and reactive to light. Extraocular movements intact. ENT: Oral mucosa moist, tongue midline. NECK: Full range of motion. Supple. Trachea midline. LUNGS: Expiratory wheeze heard all spears. No rales, or rhonchi. No respiratory distress. HEART: Regular rate and rhythm. No murmur ABDOMEN: Soft, non-tender. Non-distended. Bowel sounds present in all 4 quadrants. EXTREMITIES: Moves all 4 extremities spontaneously. No edema, normal radial and dorsalis pedis pulses bilaterally. No cyanosis. BACK: no cervical, thoracic, lumbar midline tenderness. No saddle anesthesia, normal distal neurovascular exam. NEUROLOGICAL: Alert and oriented x3. Normal speech. cranial nerves II through XII grossly intact. PSYCH: Normal affect, normal mood. SKIN: Warm, dry, normal turgor. No rashes or lesions noted. PELVIC: Yellow thick discharge seen in cul-de-sac, no cervical motion tenderness , no adnexal tenderness Course - Re-evaluation Re-evalutation: 08/13/18 01:29 Leukocytosis of 12.2 will treat for PID. No cervical motion tenderness, no adnexal tenderness. D/t dysuria will treat for UTI, culture pending. Lung sounds clear to all after breathing treatment. No pneumonia seen on chest x-ray. Patient states she does not have albuterol at home, will prescribe her Alb inhaler and steroids. RBC 3.64 HgB 10.7 Hct 31.3, not unchanged from last previous visits. Pt. continues to deny SOB, lightheadedness or weakness. Discussed close follow-up with [facility] and return precautions. - Vital Signs Vital signs: Temp Pulse Resp BP Pulse Ox 98.1 F 79 18 166/81 H 99 08/13/18 02:14 08/13/18 02:14 08/13/18 02:14 08/13/18 02:14 08/13/18 02:14 - Laboratory Result Diagrams: 08/13/18 00:05 08/13/18 00:05 Laboratory results interpreted by me: 08/13/18 08/13/18 08/13/18 00:05 00:05 00:24 WBC 12.2 H RBC 3.64 L Hgb 10.7 L Hct 31.3 L RDW 15.3 H Potassium 3.2 L ALT 6 L Urine Ketones TRACE H Urine Urobilinogen 2.0 H Ur Leukocyte Esterase MODERATE H Discharge - Discharge Clinical Impression: Bacterial vaginosis, Yeast infection involving the vagina and surrounding area , Pelvic inflammatory disease (PID), infection, trichomonal, Wheezing on both sides of chest Urinary tract infection Qualifiers: Urinary tract infection type: acute cystitis Hematuria presence: with hematuria Qualified Code(s): N30.01 - Acute cystitis with hematuria Condition: Stable Disposition: HOME, SELF-CARE Instructions: Cephalexin ([facility]), Urinary Tract Infection ([facility]) Additional Instructions: As we discussed you have been seen and treated in the emergency department for vaginal discharge and dysuria. You should take antibiotics as prescribed for urinary tract infection, bacterial vaginosis, trichomonas and yeast infection. You have been prescribed one medication called Diflucan which treats yeast infection. You have been given 1 dose in the emergency room. You should take the second Diflucan prescription after you finish the other antibiotics, meaning in 14 days. You will also be treated for wheezing heard in all lung spears. Use Albuterol inhaler every 4 hours for the next 24 hours and then as needed for respiratory distress or wheezing. Return to the emergency room should you develop abdominal pain, fever, shortness of breath or any other concerning symptoms. Prescriptions: Albuterol Sulfate [Proair HFA Inhalation Aerosol 8.5 gm MDI] 2 puff IH Q4H PRN # 1 mdi PRN Reason: Cephalexin Monohydrate [Keflex 500 mg Capsule] 500 mg PO BID 7 Days #14 capsule Doxycycline Hyclate 100 mg PO BID #14 capsule Fluconazole [Diflucan] 150 mg PO ONCE PRN #1 tablet PRN Reason: Metronidazole [Flagyl 500 mg Tablet] 500 mg PO BID #14 tablet Prednisone [Deltasone 20 mg Tablet] 3 tab PO DAILY 5 Days tablet Referrals: JACOB DORAN PA [Primary Care Provider] - Follow up as needed
[2018-08-13] MEDS ORDERED: PREDNISONE 20 MG TABLET PO ONE (01:31)
[2018-08-13 02:14] VITALS: BP 166/81
[2018-08-13 02:33] LABS: CHLAM PCR NOT DETECTED (NOT DETECT); GON PCR NOT DETECTED (NOT DETECT)
== END 2018-08-13 02:25 | disposition home or self-care (01) ==
LOC: ER 23:14
DX: N76.0 Acute vaginitis (principal); B96.89 Other specified bacterial agents as the cause of diseases classified elsewhere; B37.3 Candidiasis of vulva and vagina; N73.9 Female pelvic inflammatory disease, unspecified; A59.00 Urogenital trichomoniasis, unspecified; N30.01 Acute cystitis with hematuria; R06.2 Wheezing; F17.210 Nicotine dependence, cigarettes, uncomplicated; Z79.891 Long term (current) use of opiate analgesic; Z88.0 Allergy status to penicillin; Z88.8 Allergy status to other drugs, medicaments and biological substances; Z88.5 Allergy status to narcotic agent; Z88.6 Allergy status to analgesic agent
CPT/HCPCS: 94640; 99284; 96372; 36415; 87086; 87210; 85025; 80053; 81001; 87491; 87591; 71046; J3490 ×3; Q0144; J7512; J0696; J7620

== ENCOUNTER 2018-08-13 02:58 | Emergency (ER) | payer MEDICAID ==
[2018-08-13 03:04] VITALS: BP 165/86
[2018-08-13] MEDS ORDERED: ONDANSETRON 4 MG TAB.RAPDIS PO ONE (03:04)
[2018-08-13] MEDS ORDERED: METOCLOPRAMIDE HCL 10 MG TABLET PO ONE (03:11)
--- NOTE | 2018-08-13 03:23 | ER Document Report ---
HPI - HPI Patient complains to provider of: vomiting Pain Level: 5 Context: Patient was just discharged from this emergency department. Patient was seen here for vaginal discharge and dysuria. Patient was given p.o. azithromycin, p.o. prednisone, p.o. Flagyl and p.o. Diflucan prior to discharge. Patient states she got into the parking lot, felt nauseated and vomited x1. Patient then stated she returned to the emergency department. Patient is currently denying abdominal pain states she just feels nauseated. Patient states she did not eat anything prior to us giving her p.o. medications. Past medical history: Degenerative disc disease Medications: Methadone, Percocet Allergies: Penicillin, Zofran, Ultram Surgical history: section, cholecystectomy Patient admits to cigarette smoking, denies illicit drug use, denies EtOH use. - REPRODUCTIVE LMP: na Reproductive: DENIES: : Past Medical History - General Information source: Patient - Social History Smoking Status: Current Every Day Smoker Lives with: Family Family History: Reviewed & Not Pertinent, Other - mental illness Pulmonary Medical History: Reports: Hx COPD Neurological Medical History: Reports: Hx Migraine Renal/ Medical History: Denies: Hx Peritoneal Dialysis GI Medical History: Musculoskeletal Medical History: Reports Hx Fibromyalgia Psychiatric Medical History: Reports: Hx Attention Deficit Hyperactivity Disorder, Hx Bipolar Disorder, Hx Depression Infectious Medical History: Past Surgical History: Reports: Hx Section - x2, Hx Cholecystectomy - 1988, Hx Hysterectomy - Immunizations Hx Diphtheria, Pertussis, Tetanus Vaccination: Yes Hx Pneumococcal Vaccination: 10/25/11 Vertical Provider Document - CONSTITUTIONAL Agree With Documented VS: Yes Notes: GENERAL: Alert, interacts well. No acute distress. HEAD: Normocephalic, atraumatic. EYES: Pupils equal, round, and reactive to light. Extraocular movements intact. ENT: Oral mucosa moist, tongue midline. NECK: Full range of motion. Supple. Trachea midline. LUNGS: Clear to auscultation bilaterally, no wheezes, rales, or rhonchi. No respiratory distress. HEART: Regular rate and rhythm. No murmur ABDOMEN: Soft, non-tender. Non-distended. Bowel sounds present in all 4 quadrants. EXTREMITIES: Moves all 4 extremities spontaneously. No edema, normal radial and dorsalis pedis pulses bilaterally. No cyanosis. BACK: no cervical, thoracic, lumbar midline tenderness. No saddle anesthesia, normal distal neurovascular exam. NEUROLOGICAL: Alert and oriented x3. Normal speech. cranial nerves II through XII grossly intact. PSYCH: Normal affect, normal mood. SKIN: Warm, dry, normal turgor. No rashes or lesions noted. - INFECTION CONTROL TRAVEL OUTSIDE OF THE [place] IN LAST 30 DAYS: No Course - Re-evaluation Re-evalutation: 08/13/18 03:30 Patient allergic to Zofran. Will treat with Reglan in the emergency department. 08/13/18 04:07 Pt. able to PO ice chips and is up walking around the ED wishing for d/c. Discussed need to take Reglan prior to Flagly at home. Return precautions discussed. - Vital Signs Vital signs: Temp Pulse Resp BP Pulse Ox 99.1 F 85 20 165/86 H 97 08/13/18 03:03 08/13/18 03:03 08/13/18 03:03 08/13/18 03:03 08/13/18 03:03 Discharge - Discharge Clinical Impression: Vomiting Qualifiers: Vomiting type: unspecified Vomiting Intractability: non-intractable Nausea presence: without nausea Qualified Code(s): R11.11 - Vomiting without nausea Condition: Stable Disposition: HOME, SELF-CARE Instructions: Antinausea Medication ([facility]), Reglan ([facility]), Vomiting ([facility]) Additional Instructions: As we discussed you should take antinausea medication 30 minutes prior to taking antibiotics. Also remember try to take antibiotics on a full stomach. Return to the emergency room for any other concerning symptoms. Prescriptions: Metoclopramide HCl [Reglan 10 mg Tablet] 1 - 2 tab PO ASDIR PRN #25 tablet PRN Reason: Referrals: JACOB DORAN PA [Primary Care Provider] - Follow up as needed
== END 2018-08-13 04:14 | disposition home or self-care (01) ==
LOC: ER 02:58
DX: R11.11 Vomiting without nausea (principal); N89.8 Other specified noninflammatory disorders of vagina; F17.210 Nicotine dependence, cigarettes, uncomplicated; Z90.49 Acquired absence of other specified parts of digestive tract; Z88.0 Allergy status to penicillin; Z90.710 Acquired absence of both cervix and uterus
CPT/HCPCS: 99283; J3490

== ENCOUNTER 2020-04-02 17:15 | Emergency (ER) | payer MEDICAID ==
--- NOTE | 2020-04-02 18:01 | ER Document Report ---
ED Medical Screen (RME) - General Chief Complaint: Suicidal Ideation Stated Complaint: SUIDICAL IDEATION Time Seen by Provider: 04/02/20 17:54 Mode of Arrival: Ambulatory Information source: Patient Notes: HPI; 54-year-old female presents to the emergency room complaining of homicidal and suicidal thoughts. Patient states that she is upset with her uncle and has had thoughts of harming him. Patient also states she has a history of cutting and has attempted to cut her wrist in the past in a suicide attempt. She denies any current suicidal plan or homicidal plan. PE: Alert and oriented x3. Lungs are clear to auscultation without rales, rhonchi, or wheezes. Heart: Regular rate and rhythm without murmurs, rubs, gallops. I have greeted and performed a rapid initial assessment of this patient. A comprehensive ED assessment and evaluation of the patient, analysis of test results and completion of the medical decision making process will be conducted by additional ED providers. I have specifically instructed the patient or family members with the patient to immediately return to any nursing staff should anything change in the patient's condition or with their chief complaint. TRAVEL OUTSIDE OF THE [place] IN LAST 30 DAYS: No - Related Data Allergies/Adverse Reactions: acetaminophen [From Darvocet-N 100] Allergy (Unknown, Verified 03/30/17 16:29) Penicillins Allergy (Unknown, Verified 03/30/17 16:29) propoxyphene napsylate [From Darvocet-N 100] Allergy (Unknown, Verified 03/30/17 16:29) tramadol HCl [From Ultram] Allergy (Unknown, Verified 03/30/17 16:29) ondansetron [From Zofran] Allergy (Verified 08/13/18 03:21) Lips swelled Past Medical History Pulmonary Medical History: Reports: Hx COPD Neurological Medical History: Reports: Hx Migraine Renal/ Medical History: Denies: Hx Peritoneal Dialysis GI Medical History: Musculoskeltal Medical History: Reports Hx Fibromyalgia Psychiatric Medical History: Reports: Hx Attention Deficit Hyperactivity Disorder, Hx Bipolar Disorder, Hx Depression Infectious Medical History: Past Surgical History: Reports: Hx Section - x2, Hx Cholecystectomy - 1989, Hx Hysterectomy - Immunizations Hx Diphtheria, Pertussis, Tetanus Vaccination: Yes Physical Exam - Vital signs Vitals: Temp Pulse Resp BP Pulse Ox 98.5 F 76 18 118/67 97 04/02/20 17:28 04/02/20 17:28 04/02/20 17:28 04/02/20 17:28 04/02/20 17:28 Course - Vital Signs Vital signs: Temp Pulse Resp BP Pulse Ox 98.5 F 76 18 118/67 97 04/02/20 17:52 04/02/20 17:28 04/02/20 17:28 04/02/20 17:28 04/02/20 17:28
[2020-04-02 18:20] LABS: ABSOLUTE BASOPHILS # (AUTO) 0.1 10^3/uL (0.0-0.2); ABSOLUTE EOSINOPHILS # (AUTO) 0.3 10^3/uL (0.0-0.6); ABSOLUTE LYMPHOCYTES (AUTO) 2.4 10^3/uL (0.5-4.7); ABSOLUTE MONOCYTES (AUTO) 0.5 10^3/uL (0.1-1.4); ABSOLUTE NEUT (AUTO) 2.3 10^3/uL (1.7-8.2); EOSINOPHILS % (AUTO) 5.4 % (0-6); HEMATOCRIT 26.9 % (36.0-47.0); HEMOGLOBIN 8.8 g/dL (12.0-15.5); LYMPHOCYTES % (AUTO) 42.3 % (13-45); MEAN CORPUSCULAR HEMOGLOBIN 26.7 pg (27.0-33.4); MEAN CORPUSCULAR HGB CONC 32.9 g/dL (32.0-36.0); MEAN CORPUSCULAR VOLUME 81 fl (80-97); MONOCYTES % (AUTO) 9.6 % (3-13); PLATELET COUNT 365 10^3/uL (150-450); RED BLOOD COUNT 3.31 10^6/uL (3.72-5.28); RED CELL DISTRIBUTION WIDTH 18.8 % (11.5-14.0); SEGMENTED NEUTROPHILS % (AUTO) 41.7 % (42-78); TOTAL CELLS COUNTED % (AUTO) 100 %; WHITE BLOOD COUNT 5.6 10^3/uL (4.0-10.5)
[2020-04-02 18:43] LABS: ALBUMIN 3.7 g/dL (3.5-5.0); ALKALINE PHOSPHATASE 66 U/L (38-126); ASPARTATE AMINO TRANSFERASE 24 U/L (14-36); BILIRUBIN,TOTAL 0.2 mg/dL (0.2-1.3); BLOOD UREA NITROGEN 7 mg/dL (7-20); CARBON DIOXIDE 32 mmol/L (22-30); GLUCOSE 71 mg/dL (75-110); TOTAL PROTEIN 6.9 g/dL (6.3-8.2)
[2020-04-02 18:45] LABS: ACETAMINOPHEN < 10 ug/mL (10-30); ALCOHOL < 10 mg/dL (NONE DETECTED); SALICYLATE < 1.0 mg/dL (2.0-20.0)
[2020-04-02 18:47] LABS: ANION GAP 5 (5-19); CHLORIDE 102 mmol/L (98-107)
[2020-04-02 20:00] LABS: APPEARANCE,URINE CLEAR; BILIRUBIN,URINE NEGATIVE (NEGATIVE); COLOR,URINE STRAW; GLUCOSE, URINE NEGATIVE (NEGATIVE); KETONES,URINE NEGATIVE (NEGATIVE); LEUKOCYTE ESTERASE,URINE NEGATIVE (NEGATIVE); NITRITE,URINE NEGATIVE (NEGATIVE); PROTEIN,URINE NEGATIVE (NEGATIVE); URINE SPECIFIC GRAVITY 1.002; UROBILINOGEN,URINE NEGATIVE mg/dL (<2.0)
[2020-04-02 20:04] LABS: ADD MANUAL MICROSCOPIC YES
[2020-04-02 20:27] LABS: URINE AMPHETAMINES SCREEN NEGATIVE; URINE BARBITURATES SCREEN NEGATIVE; URINE COCAINE SCREEN NEGATIVE; URINE MARIJUANA (THC) SCREEN NEGATIVE; URINE PHENCYCLIDINE SCREEN NEGATIVE
[2020-04-02 20:31] LABS: URINE BENZODIAZEPINES SCREEN UNCONFIRMED POSITIVE; URINE METHADONE SCREEN UNCONFIRMED POSITIVE
--- NOTE | 2020-04-02 20:32 | EKG REPORT ---
SEVERITY:- ABNORMAL ECG - SINUS RHYTHM RIGHT BUNDLE BRANCH BLOCK : Confirmed by: Karis Becker MD 02-Apr-2020 20:32:08
--- NOTE | 2020-04-03 01:23 | ER Document Report ---
ED Psych Disorder / Suicide - General Mode of Arrival: Ambulatory TRAVEL OUTSIDE OF THE [place] IN LAST 30 DAYS: No <BRIEN HILL Yoni - Last Filed: 04/03/20 05:46> <JOSE JKALYAN - Last Filed: 04/03/20 06:29> - General Chief Complaint: Suicidal Ideation Stated Complaint: SUIDICAL IDEATION Time Seen by Provider: 04/02/20 17:54 Notes: Patient is a 54-year-old female who presents emergency department with a chief complaint of homicidal ideation. Patient states that she was getting angry at her nephew's home. Patient is requesting to speak with mental health in regards to these issues. She does not take any mental health medication. She is currently on methadone. Patient has a history of suicide attempt in the past. (BRIEN HILL) - Related Data Allergies/Adverse Reactions: acetaminophen [From Darvocet-N 100] Allergy (Unknown, Verified 03/30/17 16:29) Penicillins Allergy (Unknown, Verified 03/30/17 16:29) propoxyphene napsylate [From Darvocet-N 100] Allergy (Unknown, Verified 03/30/17 16:29) tramadol HCl [From Ultram] Allergy (Unknown, Verified 03/30/17 16:29) ondansetron [From Zofran] Allergy (Verified 08/13/18 03:21) Lips swelled Past Medical History - General Information source: Patient - Social History Smoking Status: Current Every Day Smoker Family History: Reviewed & Not Pertinent, Other - mental illness Patient has homicidal ideation: No Pulmonary Medical History: Reports: Hx COPD Neurological Medical History: Reports: Hx Migraine Renal/ Medical History: Denies: Hx Peritoneal Dialysis GI Medical History: Musculoskeletal Medical History: Reports Hx Fibromyalgia Psychiatric Medical History: Reports: Hx Attention Deficit Hyperactivity Disorder, Hx Bipolar Disorder, Hx Depression Infectious Medical History: Past Surgical History: Reports: Hx Section - x2, Hx Cholecystectomy - 1988, Hx Hysterectomy - Immunizations Hx Diphtheria, Pertussis, Tetanus Vaccination: Yes Hx Pneumococcal Vaccination: 10/25/11 <SERGIOBRIEN M - Last Filed: 04/03/20 05:46> Review of Systems <SERGIOBRIEN M - Last Filed: 04/03/20 05:46> - Review of Systems Notes: REVIEW OF SYSTEMS: CONSTITUTIONAL : Denies recent illness. Denies recent unintentional weight loss. Denies fever, chills, or sweats. EENT: Denies eye, ear, throat, or mouth pain, discharge, or symptoms. Denies nasal or sinus congestion. CARDIOVASCULAR: Denies chest pain. RESPIRATORY: Denies shortness of breath, cough, congestion, difficulty breathing, or wheezing. GASTROINTESTINAL: Denies nausea, vomiting, and diarrhea. Denies abdominal pain. Denies constipation. GENITOURINARY: Denies difficulty urinating, burning, blood in urine, urgency or frequency. MUSCULOSKELETAL: Denies neck and back pain. Denies joint pain or swelling. SKIN: Denies rash, itchiness, or lesions HEMATOLOGIC : Denies easy bruising or bleeding. LYMPHATIC: Denies swollen, painful, enlarged glands. NEUROLOGICAL: Denies no numbness or tingling denies weakness. Denies headache. Denies altered mental status. Denies alteration in speech. PSYCHIATRIC: See HPI. All other systems reviewed and negative. (BRIEN HILL) Physical Exam <BRIEN HILL - Last Filed: 04/03/20 05:46> - Vital signs Vitals: Temp Pulse Resp BP Pulse Ox 98.5 F 76 18 118/67 97 04/02/20 17:28 04/02/20 17:28 04/02/20 17:28 04/02/20 17:28 04/02/20 17:28 - Notes Notes: PHYSICAL EXAMINATION: GENERAL: Appears chronically ill, no acute distress. HEAD: Normocephalic, atraumatic. EYES: PERRL, conjunctiva normal, all extraocular movements intact, sclera nonicteric ENT: Moist mucous membranes. NECK: Supple, no noticeable swelling, redness, rash. Normal range of motion. LUNGS: Equal breath sounds bilaterally and clear to auscultation. No wheezes rales or rhonchi. CARDIOVASCULAR: S1-S2, regular rate, regular rhythm. Radial pulses 2+, normal. ABDOMEN: Normoactive bowel sounds. Soft, nontender, no guarding, no rebound tenderness, and no masses palpated. EXTREMITIES: Normal strength and range of motion, no pitting or edema. No cyanosis. NEUROLOGICAL: Moves all extremities upon command. Strength 5/5 in all extremities. PSYCH: Sleeping during exam SKIN: Warm, dry. No rash, lesions, ulcerations noted. Normal skin turgor. (SERGIOBRIEN Vallejo) Course - Laboratory Result Diagrams: 04/02/20 18:05 04/02/20 18:05 <BRIEN HILL - Last Filed: 04/03/20 05:46> - Laboratory Result Diagrams: 04/02/20 18:05 04/02/20 18:05 <KALYAN LUX - Last Filed: 04/03/20 06:29> - Re-evaluation Re-evalutation: 04/03/20 05:46 Patient's hemoglobin is 8.8 and hematocrit is 26.9. The patient's normal. Chem istries show a CO2 of 32, but the patient is a smoker. Patient's glucose was 71 and the patient was given a sandwich to eat. Urinalysis unremarkable. Toxicology shows benzodiazepines and methadone, which the patient is currently prescribed. Salicylates, acetaminophen, and alcohol levels are negative. At this time, the patient is cleared for mental health evaluation. (SERGIOBRIEN) - Vital Signs Vital signs: Temp Pulse Resp BP Pulse Ox 97.7 F 66 14 108/61 97 04/03/20 02:28 04/03/20 02:28 04/03/20 02:28 04/03/20 02:28 04/03/20 02:28 - Laboratory Laboratory results interpreted by me: 04/02/20 04/02/20 18:05 18:05 RBC 3.31 L Hgb 8.8 L Hct 26.9 L MCH 26.7 L RDW 18.8 H Seg Neutrophils % 41.7 L Carbon Dioxide 32 H Glucose 71 L Salicylates < 1.0 L Acetaminophen < 10 L Discharge <BONILLA HILLHANIE Yoni - Last Filed: 04/03/20 05:46> <KALYAN LUX - Last Filed: 04/03/20 06:29> - Discharge Clinical Impression: Depression, Opiate dependence Condition: Good Disposition: HOME, SELF-CARE Additional Instructions: You were assessed and evaluated by the medical and behavioral teams of [facility] ED for reported suicidal ideation. You are now deemed appropriate for discharge. You received the following services while in the ED overnight. medical and psychiatric services, psychological counseling, dietary, environmental, nursing, security, and patient care services. You are scheduled to be at [facility] at 0800 for your appointment and are encouraged to attend this appointment. You are already linked to [facility] mobile crisis services and are encouraged to continue working with them and to call them when in need of immediate mental health services. You were not provided any outpatient medications at this time but did receive referrals for psychiatric providers of your choice in [place]. DEPRESSION: Your evaluation reveals that you have depression. While symptoms may be vague, they often include disturbance of sleep, fatigue, loss of appetite, and general loss of interest in life. While depression may be a side effect of drugs, or a reaction to a major change in your life, many cases have no known cause. If depression is acute, and related to a major loss in your life, you can expect it to clear completely with time. If you have been depressed a long time, are prone to repeated bouts of depression or low mood, or have been thinking of suicide, get help. Depression can be treated with anti-depressant medication and counselling. Long-term depression will often take a few weeks to clear, even with appropriate medication. Follow-up care is important. SUICIDAL IDEATION: Suicidal ideation is a common medical term for thoughts about suicide, which may be as detailed as a formulated plan, without the suicidal act itself. Most people who undergo suicidal ideation do not commit suicide. The range of suicidal ideation varies greatly from fleeting to detailed planning, role play ing, and unsuccessful attempts. Please contact [facility] mobile crisis or return to the ED should your symptoms worsen or return. Referrals: [facility] [Outside] - Follow up as needed
[2020-04-03 09:00] VITALS: BP 132/79
== END 2020-04-03 09:00 | disposition home or self-care (01) ==
LOC: ER 17:15
DX: F32.9 Major depressive disorder, single episode, unspecified (principal); F11.20 Opioid dependence, uncomplicated; R45.850 Homicidal ideations; I45.4 Nonspecific intraventricular block; F17.200 Nicotine dependence, unspecified, uncomplicated; J44.9 Chronic obstructive pulmonary disease, unspecified; Z79.899 Other long term (current) drug therapy; Z88.8 Allergy status to other drugs, medicaments and biological substances; Z88.0 Allergy status to penicillin; Z88.6 Allergy status to analgesic agent; Z81.8 Family history of other mental and behavioral disorders
CPT/HCPCS: 36415; 80053; 80307; 81001; 85025; 93005; 93010; 99285

== ENCOUNTER 2020-08-15 09:07 | Day surgery (SDC) | payer MEDICAID, OTHER ==
[2020-08-15] MEDS ORDERED: PROPOFOL INJ 200 MG/20 ML VIAL IV ONE (09:52)
[2020-08-15] MEDS ORDERED: LIDOCAINE 2% INJ (20 MG/ML) 20 ML MDV ONE (09:52)
--- NOTE | 2020-08-15 11:35 | Operative Report ---
Operative Report DATE OF SURGERY: 08/15/20 Operative Report: The risk, benefits and alternatives of the procedure including the risk of bleeding, perforation requiring surgery have been explained to the patient in detail and informed consent has been obtained. Patient is placed in the left, lateral decubital position. Timeout was called. Propofol medication is administered. Rectal examination is done which did not reveal any masses, tears or fissures. An Olympus videoscope was introduced into the patient's rectum. Scope was then carefully advanced all the way to the cecum. Cecum was identified by the usual anatomical landmarks including the ileocecal valve as well as the appendiceal office. Photodocumentation is obtained. Scope was then sequentially pulled back via the various segments of the colon including the ascending colon, hepatic flexure, transverse colon, splenic flexure, descending colon and finally into the rectosigmoid portions of the colon. Retroflexion maneuver is performed. PREOPERATIVE DIAGNOSIS: Change in bowel habits POSTOPERATIVE DIAGNOSIS: Inadequate prep but I was able to catheter the cecum. Random biopsies taken to rule out colitis. 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 Internal hemorrhoids OPERATION: Colonoscopy with biopsy SURGEON: LUZ ROBLES ANESTHESIA: LMAC TISSUE REMOVED OR ALTERED: As noted above COMPLICATIONS: None. ESTIMATED BLOOD LOSS: None. INTRAOPERATIVE FINDINGS: As noted above. PROCEDURE: Patient tolerated the procedure well. No immediate postprocedure complications are noted. Patient is discharged in good condition. Discharge date 08/15/2020. Discharge diet: Regular. Discharge activity: Regular. 2 to 3-week follow-up to discuss findings. Patient is instructed to call the office or proceed to the emergency room should there be any further problems or questions. We will reschedule her EGD.
[2020-08-15 12:10] VITALS: BP 102/54
== END 2020-08-15 12:31 | disposition home or self-care (01) ==
LOC: END 09:07
PROVIDERS: ATTEND Internal Medicine Gastroenterology
DX: R19.4 Change in bowel habit (principal); K64.8 Other hemorrhoids; R10.13 Epigastric pain; R68.81 Early satiety; J44.9 Chronic obstructive pulmonary disease, unspecified; K21.9 Gastro-esophageal reflux disease without esophagitis; I10 Essential (primary) hypertension; F17.210 Nicotine dependence, cigarettes, uncomplicated; Z90.49 Acquired absence of other specified parts of digestive tract; Z83.79 Family history of other diseases of the digestive system; Z79.899 Other long term (current) drug therapy; Z88.0 Allergy status to penicillin; Z88.6 Allergy status to analgesic agent; Z88.8 Allergy status to other drugs, medicaments and biological substances; Z79.891 Long term (current) use of opiate analgesic
CPT/HCPCS: 45380; 88305 ×2; 00811; J3490; J2704; 811

== ENCOUNTER 2020-08-21 08:57 | Day surgery (SDC) | payer MEDICAID ==
[2020-08-21] MEDS ORDERED: PROPOFOL INJ 200 MG/20 ML VIAL IV ONE (10:09)
[2020-08-21 11:45] VITALS: BP 120/72
--- NOTE | 2020-08-21 11:53 | Operative Report ---
Operative Report DATE OF SURGERY: 08/21/20 Operative Report: The risks benefits and alternatives of the procedure explained to the patient in detail and informed consent is obtained.A GIF Olympus video scope was inserted into the patient's mouth and hypopharynx ,the esophagus is identified intubated and insufflated ,the scope was then advanced through the esophagus stomach and duodenum, retroflexion maneuver is done, the esophagus stomach and first and second portions of the duodenum examined PREOPERATIVE DIAGNOSIS: Epigastric pain, dysphagia POSTOPERATIVE DIAGNOSIS: Esophageal ulceration status post biopsy. Hiatal hernia. Gastritis status post biopsy. Duodenitis OPERATION: EGD with biopsy SURGEON: LUZ ROBLES ANESTHESIA: LMAC TISSUE REMOVED OR ALTERED: As noted above. COMPLICATIONS: None. ESTIMATED BLOOD LOSS: None. INTRAOPERATIVE FINDINGS: As noted above. PROCEDURE: Patient tolerated the procedure well. No immediate postprocedure complications are noted. Patient is discharged in good condition. Discharge date 08/21/2020. Discharge diet: Regular. Discharge activity: Regular. 2 to 3-week follow-up to discuss findings. Need to start on a PPI. Rescope in 6 to 8 weeks. Follow-up on pathology.
== END 2020-08-21 11:50 | disposition home or self-care (01) ==
LOC: END 08:57
PROVIDERS: ATTEND Internal Medicine Gastroenterology
DX: K29.70 Gastritis, unspecified, without bleeding (principal); K22.10 Ulcer of esophagus without bleeding; K29.80 Duodenitis without bleeding; K44.9 Diaphragmatic hernia without obstruction or gangrene; K21.9 Gastro-esophageal reflux disease without esophagitis; J44.9 Chronic obstructive pulmonary disease, unspecified; F17.200 Nicotine dependence, unspecified, uncomplicated; Z79.891 Long term (current) use of opiate analgesic; Z79.899 Other long term (current) drug therapy; Z68.22 Body mass index [BMI] 22.0-22.9, adult; Z88.0 Allergy status to penicillin; Z88.6 Allergy status to analgesic agent; Z88.8 Allergy status to other drugs, medicaments and biological substances; Z03.818 Encounter for observation for suspected exposure to other biological agents ruled out
CPT/HCPCS: 43239; 88305 ×2; J2704; 731; 88312; 88342

== ENCOUNTER 2020-08-27 22:08 | Emergency (ER) | payer MEDICAID ==
[2020-08-27] MEDS ORDERED: ONDANSETRON HCL INJ/PF 4 MG/2 ML SDV IV ONE (22:33)
[2020-08-27] MEDS ORDERED: MAG HYDROX/AL HYDROX/SIMETH SUSP 30 ML UDCUP PO ONE (22:38)
[2020-08-27] MEDS ORDERED: LIDOCAINE 2% VISCOUS SOLN 15 ML UDCUP PO ONE (22:38)
--- NOTE | 2020-08-27 22:39 | ER Document Report ---
ED Medical Screen (RME) - General Stated Complaint: FLANK PAIN Time Seen by Provider: 08/27/20 22:26 Information source: Patient Notes: She presents complaining of epigastric and right upper quadrant pain for the past 6 or 7 months. Patient reports nausea and vomiting x1 episode. Patient denies any cough or chest pain. Patient denies any fever. Patient denies any urinary symptoms. Patient had an EGD performed on 08/21/2020 and was found to have gastritis, hiatal hernia and an esophageal ulcer. Patient also reports a history of anxiety, bipolar disorder and COPD. Patient denies any blood in her emesis. I have greeted and performed a rapid initial assessment of this patient. A comprehensive ED assessment and evaluation of the patient, analysis of test results and completion of the medical decision making process will be conducted by additional ED providers. TRAVEL OUTSIDE OF THE [place] IN LAST 30 DAYS: No - Related Data Allergies/Adverse Reactions: acetaminophen [From Darvocet-N 100] Allergy (Unknown, Verified 08/14/20 11:55) Hives Penicillins Allergy (Unknown, Verified 08/14/20 11:55) Anaphylactoid propoxyphene napsylate [From Darvocet-N 100] Allergy (Unknown, Verified 08/14/20 11:55) Hives tramadol HCl [From Ultram] Allergy (Unknown, Verified 08/14/20 11:55) "my heart speeds up" Past Medical History - Past Medical History Cardiac Medical History: Denies: Hx Coronary Artery Disease, Hx Heart Attack, Hx Hypertension Pulmonary Medical History: Reports: Hx COPD, Hx Pneumonia Denies: Hx Asthma, Hx Bronchitis Neurological Medical History: Reports: Hx Migraine. Denies: Hx Cerebrovascular Accident, Hx Seizures Renal/ Medical History: Denies: Hx Peritoneal Dialysis GI Medical History: Musculoskeltal Medical History: Reports Hx Arthritis - Generalized , Reports Hx Fibromyalgia Psychiatric Medical History: Reports: Hx Attention Deficit Hyperactivity Disorder, Hx Bipolar Disorder, Hx Depression Infectious Medical History: Past Surgical History: Reports: Hx Section - x2, Hx Cholecystectomy - 1988, Hx Hysterectomy - Immunizations Hx Diphtheria, Pertussis, Tetanus Vaccination: No Physical Exam - Vital signs Vitals: Temp Pulse Resp BP Pulse Ox 98.9 F 86 16 145/100 H 100 08/27/20 22:31 08/27/20 22:31 08/27/20 22:31 08/27/20 22:31 08/27/20 22:31 - Abdominal Tenderness: Tender - Epigastric Course - Vital Signs Vital signs: Temp Pulse Resp BP Pulse Ox 98.9 F 86 16 145/100 H 100 08/27/20 22:31 08/27/20 22:31 08/27/20 22:31 08/27/20 22:31 08/27/20 22:31
[2020-08-28 00:05] LABS: ABSOLUTE BASOPHILS # (AUTO) 0.1 10^3/uL (0.0-0.2); ABSOLUTE EOSINOPHILS # (AUTO) 0.2 10^3/uL (0.0-0.6); ABSOLUTE LYMPHOCYTES (AUTO) 1.8 10^3/uL (0.5-4.7); ABSOLUTE MONOCYTES (AUTO) 0.5 10^3/uL (0.1-1.4); ABSOLUTE NEUT (AUTO) 5.4 10^3/uL (1.7-8.2); BASOPHILS % (AUTO) 0.9 % (0-2); EOSINOPHILS % (AUTO) 2.1 % (0-6); HEMATOCRIT 26.5 % (36.0-47.0); HEMOGLOBIN 8.5 g/dL (12.0-15.5); LYMPHOCYTES % (AUTO) 22.7 % (13-45); MEAN CORPUSCULAR HEMOGLOBIN 24.8 pg (27.0-33.4); MEAN CORPUSCULAR HGB CONC 32.1 g/dL (32.0-36.0); MEAN CORPUSCULAR VOLUME 77 fl (80-97); PLATELET COUNT 396 10^3/uL (150-450); RED BLOOD COUNT 3.42 10^6/uL (3.72-5.28); RED CELL DISTRIBUTION WIDTH 20.6 % (11.5-14.0); SEGMENTED NEUTROPHILS % (AUTO) 68.3 % (42-78); TOTAL CELLS COUNTED % (AUTO) 100 %
[2020-08-28 00:27] LABS: ALBUMIN 4.1 g/dL (3.5-5.0); ALKALINE PHOSPHATASE 76 U/L (38-126); ANION GAP 8 (5-19); ASPARTATE AMINO TRANSFERASE 20 U/L (14-36); BILIRUBIN,DIRECT 0.2 mg/dL (0.0-0.4); BILIRUBIN,TOTAL 0.3 mg/dL (0.2-1.3); BLOOD UREA NITROGEN 12 mg/dL (7-20); CALCIUM 9.5 mg/dL (8.4-10.2); CARBON DIOXIDE 30 mmol/L (22-30); CHLORIDE 104 mmol/L (98-107); GLUCOSE 88 mg/dL (75-110); POTASSIUM 4.4 mmol/L (3.6-5.0); TOTAL PROTEIN 7.1 g/dL (6.3-8.2)
[2020-08-28] MEDS ORDERED: ONDANSETRON 4 MG TAB.RAPDIS PO ONE (02:56)
[2020-08-28] MEDS ORDERED: FAMOTIDINE 20 MG TABLET PO ONE (02:56)
[2020-08-28] MEDS ORDERED: LIDOCAINE 2% VISCOUS SOLN 15 ML UDCUP PO ONE (03:00)
[2020-08-28] MEDS ORDERED: ONDANSETRON HCL INJ/PF 4 MG/2 ML SDV IV ONE (03:00)
[2020-08-28] MEDS ORDERED: MAG HYDROX/AL HYDROX/SIMETH SUSP 30 ML UDCUP PO ONE (03:00)
[2020-08-28 03:05] LABS: APPEARANCE,URINE CLEAR; BILIRUBIN,URINE NEGATIVE (NEGATIVE); COLOR,URINE COLORLESS; GLUCOSE, URINE NEGATIVE (NEGATIVE); KETONES,URINE NEGATIVE (NEGATIVE); LEUKOCYTE ESTERASE,URINE NEGATIVE (NEGATIVE); NITRITE,URINE NEGATIVE (NEGATIVE); PROTEIN,URINE NEGATIVE (NEGATIVE); URINE SPECIFIC GRAVITY 1.004; UROBILINOGEN,URINE NEGATIVE mg/dL (<2.0)
[2020-08-28] MEDS ORDERED: SUCRALFATE 1 GM TABLET PO ONE (03:27)
--- NOTE | 2020-08-28 04:41 | ER Document Report ---
ED General - General Chief Complaint: Epigastric Pain Stated Complaint: FLANK PAIN Time Seen by Provider: 08/27/20 22:26 Primary Care Provider: VIRGEN HOWELL FNP-C [Primary Care Provider] - Follow up as needed Notes: 55-year-old female on methadone maintenance treatment program with peptic ulcer disease, hiatal hernia presents with persistent pain in epigastrium for the past year that has been worse for the past 2 days associated with 1 episode of nonbloody nonbilious emesis. Patient has been tolerating p.o. since episode of emesis. Patient has been followed by GI for the symptoms and had upper and lo wer endoscopy approximately 2 weeks ago which showed esophageal ulcer, peptic ulcer disease, hiatal hernia, with biopsy still pending. Patient has follow-up today at 9 AM. Patient denies any acute change in the quality or location of her pain, diarrhea, constipation, obstipation, lower abdominal pain, fever, black stool, bloody stool, dizziness, syncope, chest pain, shortness of breath TRAVEL OUTSIDE OF THE [place] IN LAST 30 DAYS: No - Related Data Allergies/Adverse Reactions: acetaminophen [From Darvocet-N 100] Allergy (Unknown, Verified 08/14/20 11:55) Hives Penicillins Allergy (Unknown, Verified 08/14/20 11:55) Anaphylactoid propoxyphene napsylate [From Darvocet-N 100] Allergy (Unknown, Verified 08/14/20 11:55) Hives tramadol HCl [From Ultram] Allergy (Unknown, Verified 08/14/20 11:55) "my heart speeds up" Home Medications: methadone 150/day Past Medical History - General Information source: Patient - Social History Smoking Status: Current Every Day Smoker Frequency of alcohol use: None Drug Abuse: Other Family History: Reviewed & Not Pertinent, Other - mental illness - Past Medical History Cardiac Medical History: Denies: Hx Coronary Artery Disease, Hx Heart Attack, Hx Hypertension Pulmonary Medical History: Reports: Hx COPD, Hx Pneumonia Denies: Hx Asthma, Hx Bronchitis Neurological Medical History: Reports: Hx Migraine. Denies: Hx Cerebrovascular Accident, Hx Seizures Renal/ Medical History: Denies: Hx Peritoneal Dialysis GI Medical History: Musculoskeletal Medical History: Reports Hx Arthritis - Generalized , Reports Hx Fibromyalgia Psychiatric Medical History: Reports: Hx Attention Deficit Hyperactivity Disorder, Hx Bipolar Disorder, Hx Depression Infectious Medical History: Past Surgical History: Reports: Hx Section - x2, Hx Cholecystectomy - 1989, Hx Hysterectomy - Immunizations Hx Diphtheria, Pertussis, Tetanus Vaccination: No Hx Pneumococcal Vaccination: 10/25/11 Review of Systems - Review of Systems Notes: REVIEW OF SYSTEMS: CONSTITUTIONAL : Denies fever, chills, or sweats. EENT: Denies recent cold/sinus symptoms, denies throat pain CARDIOVASCULAR: Denies chest pain, CANDICE RESPIRATORY: Denies cough, denies shortness of breath. GASTROINTESTINAL: + abdominal pain, +nausea/vomiting. GENITOURINARY: Denies difficulty urinating, painful urination. FEMALE GENITOURINARY: Denies abnormal vaginal bleeding, vaginal discharge. MUSCULOSKELETAL: Denies neck pain, back pain. SKIN: Denies rash or skin lesions. HEMATOLOGIC : Denies easy bruising or bleeding. LYMPHATIC: Denies swollen, enlarged glands. NEUROLOGICAL: Denies headache, denies change in gait. PSYCHIATRIC: Denies anxiety or stress or depression. Physical Exam - Vital signs Vitals: Temp Pulse Resp BP Pulse Ox 98.9 F 86 16 145/100 H 100 08/27/20 22:31 08/27/20 22:31 08/27/20 22:31 08/27/20 22:31 08/27/20 22:31 - Notes Notes: PHYSICAL EXAMINATION: GENERAL: Well-appearing, well-nourished and in no acute distress. HEAD: Atraumatic, normocephalic. EYES: Pupils equal round and appropriate constriction, sclera anicteric, con junctiva are normal. ENT: nares patent, moist mucous membranes. NECK: Normal range of motion, supple without lymphadenopathy LUNGS: Breath sounds clear to auscultation bilaterally and equal. No wheezes rales or rhonchi. HEART: Regular rate and rhythm without murmurs ABDOMEN: Soft, mild epigastric tenderness, no rebound, no guarding, no masses, no CVAT EXTREMITIES: Normal range of motion, no pitting or edema. No cyanosis. NEUROLOGICAL: Awake, alert, conversing appropriately, moves all extremities spontaneously. PSYCH: Normal mood, normal affect. SKIN: Warm, Dry, normal turgor, no rashes or lesions noted. Course - Re-evaluation Re-evalutation: 08/28/20 04:42 Patient with mild epigastric tenderness on exam, feels her pain is insufficiently controlled with the meds that her retail pharmacy technician gave her aft er her endoscopy and colonoscopy last week. Patient has no signs of bleeding, no signs of perforation, and no signs of infection. Patient's abdominal exam is benign, vitals are normal, patient very well-appearing. No significant abnormalities on her labs, patient is anemic but when I discussed hemoglobin of 8 with her she says that this is her baseline. This is consistent with her previous hemoglobin measurement here few months ago. Patient has follow-up scheduled with her retail pharmacy technician this morning. Patient's pain is significantly improved after GI cocktail and Carafate. Patient ready for discharge with GI follow-up today. Gave patient extensive return to ED precautions which she demonstrated understanding of. Patient already started on PPI and H2 samm by her retail pharmacy technician. - Vital Signs Vital signs: Temp Pulse Resp BP Pulse Ox 98.1 F 78 16 145/64 H 100 08/28/20 03:11 08/28/20 03:11 08/28/20 03:11 08/28/20 03:11 08/28/20 03:11 - Laboratory Result Diagrams: 08/27/20 23:40 08/27/20 23:40 Laboratory results interpreted by me: 08/27/20 08/27/20 23:40 23:40 RBC 3.42 L Hgb 8.5 L Hct 26.5 L MCV 77 L MCH 24.8 L RDW 20.6 H Creatinine 1.29 H Est GFR ( Amer) 52 L Est GFR (MDRD) Non-Af 43 L Discharge - Discharge Clinical Impression: Epigastric pain, Peptic ulcer disease Anemia Qualifiers: Anemia type: unspecified type Qualified Code(s): D64.9 - Anemia, unspecified Disposition: HOME, SELF-CARE Additional Instructions: Ulcer You have an ulcer. An ulcer is an erosion of the lining of the stomach or duodenum. It's a hole "burned out" by acid. Typically, this causes a burning or gnawing upper abdominal pain. Bleeding may occur from the ulcer. Ulcers may be started by alcohol or medicines, or by infection of the stomach. Antacids may be taken for pain, and may allow the ulcer to heal when taken after meals and at bedtime. More commonly, acid- suppressing drugs or ulcer- protective drugs (like Carafate) are prescribed. Avoid aspirin, ibuprofen, caffeine, tobacco, and alcohol. Repeat tests to confirm healing of the ulcer may be necessary. Some ulcers seem to be brought on by infection. If the doctor feels this is likely, you may be treated with bismuth for several weeks. If the abdominal pain worsens, or there's evidence of bleeding (such as black, tarry stool, bloody or black vomit, chest pain, difficulty breathing, fainting, or lightheadedness), you should call the doctor or return immediately. Follow-up with your retail pharmacy technician and your primary doctor within 1 week regarding your anemia and your pain. Bring a copy of your results when you go for your follow-up appointments. Your kidney function has decreased since your last had lab work here. This does not appear to be related to your current symptoms, but it is extremely important that you follow this up with your primary doctor. Prescriptions: Sucralfate [Carafate 1 gm Tablet] 1 gm PO ACHSP PRN #10 tablet PRN Reason: For Pain Scale 2-3 Referrals: VIRGEN HOWELL, BUSINESS INFORMATION CONSULTANT-C [Primary Care Provider] - Follow up as needed
[2020-08-28 05:00] VITALS: BP 127/71
--- NOTE | 2020-08-28 19:00 | EKG REPORT ---
SEVERITY:- ABNORMAL ECG - SINUS RHYTHM RIGHT ATRIAL ABNORMALITY RIGHT BUNDLE BRANCH BLOCK BASELINE ARTEFACT : Confirmed by: Erick Mendoza MD 28-Aug-2020 19:00:43
== END 2020-08-28 05:19 | disposition home or self-care (01) ==
LOC: ER 22:08
DX: K22.10 Ulcer of esophagus without bleeding (principal); K44.9 Diaphragmatic hernia without obstruction or gangrene; D64.9 Anemia, unspecified; R11.2 Nausea with vomiting, unspecified; R10.13 Epigastric pain; R10.816 Epigastric abdominal tenderness; Z79.891 Long term (current) use of opiate analgesic; J44.9 Chronic obstructive pulmonary disease, unspecified; Z88.8 Allergy status to other drugs, medicaments and biological substances; Z88.0 Allergy status to penicillin; Z88.6 Allergy status to analgesic agent; Z88.5 Allergy status to narcotic agent; F17.200 Nicotine dependence, unspecified, uncomplicated
CPT/HCPCS: 93005; 99284; 36415; 83690; 85025; 80053; 81001; 93010; J3490 ×4; S0119

== ENCOUNTER 2020-10-02 09:15 | Day surgery (SDC) | payer MEDICAID ==
[~2020-10-02 09:15] MED LIST: PROPOFOL INJ 200 MG/20 ML VIAL IV ONE
--- NOTE | 2020-10-02 10:41 | Operative Report ---
Operative Report DATE OF SURGERY: 10/02/20 Operative Report: The risks benefits and alternatives of the procedure explained to the patient in detail and informed consent is obtained.A GIF Olympus video scope was inserted into the patient's mouth and hypopharynx, the esophagus is identified intubated and insufflated, the scope was then advanced through the esophagus stomach and duodenum, retroflexion maneuver is done, the esophagus stomach and first and second portions of the duodenum examined PREOPERATIVE DIAGNOSIS: Follow-up esophageal ulceration POSTOPERATIVE DIAGNOSIS: Gastritis which is improved recheck for H. pylori. Healing esophageal ulcer, status post biopsy at the distal EG junction rule out Mitchell's esophagus OPERATION: EGD with biopsy SURGEON: LUZ ROBLES ANESTHESIA: LMAC TISSUE REMOVED OR ALTERED: As noted above. COMPLICATIONS: None. ESTIMATED BLOOD LOSS: None. INTRAOPERATIVE FINDINGS: As noted above. PROCEDURE: Patient tolerated the procedure well. No immediate postprocedure complications are noted. Patient is discharged in good condition. Discharge date 10/02/2020. Discharge diet: Regular. Discharge activity: Regular. 2 to 3-week follow-up to discuss findings. Wait on the pathology. Patient is instructed call the office or proceed to the emergency room should there be any further problems or questions.
[2020-10-02 11:16] VITALS: BP 112/78
== END 2020-10-02 11:21 | disposition home or self-care (01) ==
LOC: END 09:15
PROVIDERS: ATTEND Internal Medicine Gastroenterology
DX: K22.10 Ulcer of esophagus without bleeding (principal); K29.70 Gastritis, unspecified, without bleeding; M19.90 Unspecified osteoarthritis, unspecified site; F17.200 Nicotine dependence, unspecified, uncomplicated; Z79.891 Long term (current) use of opiate analgesic
CPT/HCPCS: 43239; 88342 ×2; 88305 ×2; 88312 ×2; J2704; 731